=== PATIENT | female | born 1975 | race Two or more races ===

== ENCOUNTER 2021-11-04 15:25 | Emergency (ER) | payer BC, OTHER ==
[~2021-11-04] VITALS: Ht 172.7 cm; Wt 102.1 kg
[2021-11-04 15:27] VITALS: BP 133/78
[2021-11-04] MEDS ORDERED: ALUM & MAG HYDROX-SIMETH LIQ(MAALOX) 30 ML PO ONE (16:30)
[2021-11-04 17:48] LABS: Basophils # (auto) 0.1 10 ^3/uL (0-0.2); Basophils % (auto) 1.1 % (0.0-2.0); Eosinophils # (auto) 0.2 10 ^3/uL (0-0.8); Eosinophils % (auto) 2.8 % (0.0-7.0); Hematocrit 38.8 % (36.0-46.0); Hemoglobin 12.9 g/dL (12.2-16.2); Lymphocytes # (auto) 1.1 10 ^3/uL (0.4-5.4); Lymphocytes % (auto) 17.3 % (10.0-50.0); Mean Corpuscular Hemoglobin 30.7 pg (28.0-32.0); Mean Corpuscular Hgb Conc. 33.3 g/dL (32.0-36.0); Mean Corpuscular Volume 92.2 fL (80.0-100.0); Monocytes # (auto) 0.6 10 ^3/uL (0-1.3); Monocytes % (auto) 9.7 % (0.0-12.0); Neutrophils # (auto) 4.4 10 ^3/uL (1.6-8.6); Neutrophils % (auto) 69.1 % (37.0-80.0); Nucleated Red Blood Cells % 0.1 %; Red Blood Cells 4.21 10^6/uL (4.0-5.20); Red Cell Distribution Width 15.7 % (11.8-14.3); White Blood Cell 6.4 10^3/uL (4.4-10.8)
[2021-11-04 17:55] LABS: Albumin 3.7 g/dL (3.4-5.0); Calcium 8.3 mg/dL (8.5-10.1); Magnesium 3.2 mg/dL (1.6-2.6)
[2021-11-04 18:01] LABS: BUN/Creatinine Ratio 16.7; Bilirubin, Total 0.2 mg/dL (0.2-1.0); Total Protein 7.9 g/dL (6.4-8.2)
[2021-11-04 18:07] LABS: Beta HCG, Quantitative < 1 mlU/mL (1-3); Thyroid Stimulating Hormone 2.01 uIU/mL (0.358-3.74)
[2021-11-04] MEDS ORDERED: DexAMETHasone 4 MG TAB PO ONE (18:30)
== END 2021-11-04 18:54 | disposition left against medical advice (07) ==
LOC: ER 15:26
DX: R07.89 Other chest pain (principal)
CPT/HCPCS: 36415; 80053; 83690; 83735; 83880; 84443; 84484; 84702; 85025; 85379; 93005

== ENCOUNTER 2021-11-07 08:04 | Emergency (ER) | payer BC ==
[~2021-11-07] VITALS: Ht 172.7 cm; Wt 102.1 kg
[2021-11-07] MEDS ORDERED: AMOX-277 PO (11:57)
[2021-11-07 12:10] VITALS: BP 120/89
== END 2021-11-07 12:16 | disposition home or self-care (01) ==
LOC: ER 08:04
DX: J06.9 Acute upper respiratory infection, unspecified (principal); Z20.822 Contact with and (suspected) exposure to COVID-19
CPT/HCPCS: 36415; 71045; 87426

== ENCOUNTER 2023-02-28 12:13 | Emergency (ER) | payer BC ==
[~2023-02-28] VITALS: Ht 172.7 cm; Wt 85.0 kg
[~2023-02-28 12:13] MED LIST: AMOX-277 PO
[2023-02-28] MEDS ORDERED: AUG875T PO (13:55)
[2023-02-28] MEDS ORDERED: LIDO2SOL18 MT (13:55)
[2023-02-28 13:59] VITALS: BP 111/69
[2023-02-28] MEDS ORDERED: LIDOCAINE VISCOUS 2% 15ML UD MT ONE (14:00)
== END 2023-02-28 14:28 | disposition home or self-care (01) ==
LOC: ER 12:13
DX: J02.0 Streptococcal pharyngitis (principal); H92.03 Otalgia, bilateral; F41.9 Anxiety disorder, unspecified; G35 Multiple sclerosis
CPT/HCPCS: 87070; 87880

== ENCOUNTER 2023-06-10 10:40 | Emergency (ER) | payer BC ==
[~2023-06-10] VITALS: Ht 172.7 cm; Wt 91.4 kg
[~2023-06-10 10:40] MED LIST changes: -AMOX-277 PO; +AMOX875T4 PO; +AUG875T PO; +LIDO2SOL18 MT
[2023-06-10] MEDS ORDERED: PENI500T2 PO (13:27)
[2023-06-10] MEDS ORDERED: IPRATROPIUM BROM 0.5 MG/2.5ML INH SOL NEB ONE (13:30)
[2023-06-10] MEDS ORDERED: DexAMETHasone SOD PHOS 10MG/1ML VIAL INJ IM ONE (13:30)
[2023-06-10] MEDS ORDERED: ALBUTEROL SULF 2.5 MG/0.5ML(0.5%) NEB SOLN NEB ONE (13:30)
[2023-06-10 14:06] VITALS: BP 128/88; PULSE 86; RESP 16; TEMP 97.8; O2SAT 98
== END 2023-06-10 14:24 | disposition home or self-care (01) ==
LOC: ER 10:40
DX: J02.9 Acute pharyngitis, unspecified (principal); F41.9 Anxiety disorder, unspecified; Z79.899 Other long term (current) drug therapy
CPT/HCPCS: 94640; 96372; 99283; J1100; J7644

== ENCOUNTER 2025-01-02 11:20 | Emergency (ER) | payer BC, MEDICAID ==
[~2025-01-02] VITALS: Ht 154.9 cm; Wt 74.8 kg
[~2025-01-02 11:20] MED LIST changes: +PENI500T2 PO
--- NOTE | 2025-01-02 11:38 | ED.PDOC ---
General HPI Comments 49-year-old female presents with a chief complaint of dysuria, back pain, and flank pain. Patient states that her pain is localized to her right flank, nonradiating, and also the middle of her back, nonradiating. Patient mentions that she believes that she has a UTI and would like antibiotics. Patient denies any hematuria, burning with urination, or vaginal discharge. Patient is ambulatory with steady gait. PMHx: Anxiety, Arthritis, MS PSHx: Appendectomy, Tummy Tuck, Breast Augmentation HPI: Poor Historian. REVIEW OF SYSTEMS: CONSTITUTIONAL: Denies acute: fever, diaphoresis, chills, generalized weakness. HEAD: Denies acute: headache, photophobia Eyes: Denies acute: Double vision, vision loss, eye pain, eye discharge. EARS: Denies acute: tinnitus, hearing loss, ear discharge, ear pain, THROAT: Denies acute: sore throat, swelling, difficulty swallowing , pain with swallowing, change in voice. NECK: Denies acute: neck pain, neck swelling, stiff neck. HEART: Denies acute : chest pain, palpitations, LUNGS: Denies acute: SOB, wheezing, cough, hemoptysis ABDOMEN: Denies acute: abdominal pain, Nausea, Vomiting, diarrhea, melena , hematemesis, hematochezia SKIN: Denies acute: rash, redness, lesions, itchiness. EXTREMITIES: Denies acute: calf pain, numbness, tingling, weakness, denies pain in extremity. Denies acute: Low back pain. Neuro: Denies acute: focal neurological deficit, motor or sensory focal neurological deficit, tremors, seizure like activity, confusion, dizziness, change in mental status, loss of bowel or bladder function, cauda equina like symptoms. : Denies acute: , hematuria, increase in urinary frequency. PSYCH: Denies acute: hallucination, suicidal ideation, homicidal ideation. FEMALE: Denies acute: abnormal vaginal bleeding, foul odor, unusual discharge. PHYSICAL EXAM: General: no acute distress, awake and alert. Head: normocephalic, atraumatic. Neck: supple, trachea is midline, no swelling. Throat: Normal phonation. Eyes:, no erythema, no purulent discharge, no proptosis, no icterus. Heart: regular rate, regular rhythm, no significant murmur appreciated. Lungs: no apparent respiratory distress, Able to speak in full sentences. No wheezing, no rhonchi, no crackles. No stridors Clear to auscultation bilaterally. Abdomen: non tender to palpation, non distended, soft, no guarding, no rebound, + bowel sounds. Neuro: Awake, Alert, oriented to name, self, situation, follows commands GCS=15. Speech is normal. Skin: no petechia, no purpura, no cyanosis, non-pale, not jaundice. Lower extremities: --no - Pitting edema no deformity, no focal swelling, no calf TTP. Makes eye contact. moves all four extremities. Face: no apparent facial droop. Minimal left CVA tenderness to percussion . Ambulating in the ED independently. ED COURSE: Chief Complaint: Urinary Time Seen by MD: 11:31 Primary Care Provider: ADITYA Medina notes: Nurses Notes, Medications, Allergies Allergies: Coded Allergies: NO KNOWN ALLERGIES (Unverified , 11/04/21) Home Meds Active Scripts Cephalexin Monohydrate (Cephalexin) 500 Mg Tab, 1 TAB PO QID for 7 Days, #28 TAB Prov:CHEPE ESCOBAR DO 01/02/25 Penicillin V Potassium (Veetids) 500 Mg Tab, 1 TAB PO BID for 10 Days, #20 TAB 0 Refills Prov:MARILYN DAVIS ROLLER MAKER 06/10/23 Lidocaine Hcl (Lidocaine Viscous) 2 % Shirin, 15 ML MT Q4HPRN PRN for 3 Days, #300 ML Prov:LESLIE GOEL ROLLER MAKER 02/28/23 Amoxicillin & Pot Clavulanate (AUGMENTIN TABLET) 875 Mg Tb, 875 MG PO BID for 10 Days, #20 TAB Prov:LESLIE GOEL ROLLER MAKER 02/28/23 Amoxicillin & Pot Clavulanate (Amoxicillin/Potassium Cla) 875 Mg Tab, 1 TAB PO BID for 10 Days, #20 TAB 0 Refills Prov:TREVIN VEGA 11/07/21 Information Source: Patient Mode of Arrival: Ambulatory Past Medical History PAST MEDICAL HISTORY: Anxiety, Arthritis Past Medical History (Other): MS Surgical History: Appendectomy Surgical History (Other): Breast Augmentation, Tummy Tuck ENGINEERING TEST MECHANIC History: No Pertinent ENGINEERING TEST MECHANIC History Family History Family History: Reviewed,noncontributory to illness, Unknown Social History Smoker: Non-Smoker Alcohol: Denies ETOH Use Drugs: Denies Drug Use Lives In: Home Was a procedure done? Was a procedure done?: No Differential Diagnosis Kidney stone (Female): Other (Flank Pain;DDX include Nephrolethiasis, obstructive uropathy, kidney cancer, renal infarct, intraabdominal neoplasm, lower lobe pneumonia, retroperitoneal hemorrhage, pancreatitis, aneurysm, dissection, musculoskeletal, rib contusion/trauma, hematoma, PYLONEPHRITIS, muscle strain, spinal disease. IN A FEMALE) Urinary Problem (Female): Pyelonephritis, UTI, Other X-Ray, Labs, Meds, VS Vital Signs Date Time Temp Pulse Resp B/P (MAP) Pulse Ox O2 Delivery O2 Flow Rate FiO2 01/02/25 16:11 97.9 90 16 113/84 (94) 98 97.9 01/02/25 12:38 97.9 87 19 106/83 (91) 95 97.9 01/02/25 12:38 87 19 95 Room Air 01/02/25 11:34 98.7 99 19 119/83 (95) 98 98.7 Lab Test 01/02/25 12:10 01/02/25 11:30 Range/Units Urine Color Light-yellow Yellow Urine Clarity Clear Clear Urine pH 6.5 5.0-9.0 Urine Specific [place] 1.009 1.001-1.035 Urine Protein Negative Negative Urine Ketones Negative Negative Urine Blood Negative Negative /uL Urine Nitrite Negative Negative Urine Bilirubin Negative Negative Urine Urobilinogen Normal Negative mg/dL Urine Leukocyte Esterase Negative Negative /uL Urine RBC <1 0 - 4 /hpf Urine Microscopic WBC 0-5 /HPF Urine Squamous Epithelial Cells Few <5 /hpf Urine Bacteria None seen None Seen /hpf Urine Glucose Normal Normal mg/dL Urine Test Negative Negative White Blood Count 8.1 4.4-10.8 10^3/uL Red Blood Count 4.29 4.0-5.20 10^6/uL Hemoglobin 12.7 12.2-16.2 g/dL Hematocrit 38.5 36.0-46.0 % Mean Corpuscular Volume 89.6 80.0-100.0 fL Mean Corpuscular Hemoglobin 29.6 28.0-32.0 pg Mean Corpuscular Hemoglobin Concent 33.0 32.0-36.0 g/dL Red Cell Distribution Width 17.3 H 11.8-14.3 % Platelet Count 360 140-450 10^3/uL Mean Platelet Volume 8.0 6.9-10.8 fL Neutrophils (%) (Auto) 56.7 37.0-80.0 % Lymphocytes (%) (Auto) 31.4 10.0-50.0 % Monocytes (%) (Auto) 7.5 0.0-12.0 % Eosinophils (%) (Auto) 3.1 0.0-7.0 % Basophils (%) (Auto) 1.3 0.0-2.0 % Neutrophils # (Auto) 4.6 1.6-8.6 10 ^3/uL Lymphocytes # (Auto) 2.5 0.4-5.4 10 ^3/uL Monocytes # (Auto) 0.6 0-1.3 10 ^3/uL Eosinophils # (Auto) 0.3 0-0.8 10 ^3/uL Basophils # (Auto) 0.1 0-0.2 10 ^3/uL Nucleated Red Blood Cells 0.1 % Sodium Level 139 136-145 mmol/L Potassium Level 4.1 3.5-5.1 mmol/L Chloride Level 106 98-107 mmol/L Carbon Dioxide Level 29 20-31 mmol/L Anion Gap 4 L 5-15 Blood Urea Nitrogen 11 9-23 mg/dL Creatinine 0.67 0.550-1.02 mg/dL Glomerular Filtration Rate Calc 108 >90 mL/min BUN/Creatinine Ratio 16.4 10.0-20.0 Serum Glucose 86 74-106 mg/dL Lactic Acid Level 0.8 0.4-2.0 mmol/L Calcium Level 9.4 8.7-10.4 mg/dL Total Bilirubin 0.3 0.2-1.0 mg/dL Aspartate Amino Transferase (AST) 20 13-40 U/L Alanine Aminotransferase (ALT) 25 7-40 U/L Alkaline Phosphatase 76 46-116 U/L Total Protein 7.1 5.7-8.2 g/dL Albumin 4.4 3.2-4.8 g/dL PATIENT: JAN SAM MACCT: [id number]: [id number] : 1975 LOC: ER ROOM / BED: / AGE / SEX: 49 / F ADM STATUS: REG ER SERVICE 1341 ORDERING PHYSICIAN: CHEPE ESCOBAR DO PROCEDURE(s): ABPLIV - CT AB PEL WITH IV CON ONLY REASON: urinary symptoms, R flank pain ORDER NUMBER(s): [id number], ACCESSION NUMBER(s): [id number] Procedure: CT CT AB PEL WITH IV CON ONLY 01/02/2025 03:06 PM Indication: urinary symptoms, R flank pain Comparison Study: None Technique: Axial images were obtained and reformatted in coronal and sagittal planes. All CT scans at this medical facility are performed using dose modulation techniques as appropriate to a performed exam including the following: Automated exposure control was utilized; adjustment of the MA and/or KV according to patient size; and use of iterative reconstruction technique. CT Dose: CTDI volume is 21.96 mGy. Dose-length product is 1176.07 mGy*cm FINDINGS: Lower Chest: Unremarkable. Hepatobiliary: Unremarkable. Spleen: Unremarkable. Pancreas: Unremarkable. Adrenal Glands: Unremarkable. tract: The kidneys are normal in size bilaterally . Mild fullness of the bilateral renal pelvises. No urinary calculi. No hydronephrosis. The urinary bladder is unremarkable. GI tract: The stomach is grossly normal in appearance. No evidence of small bowel obstruction. The large bowel is unremarkable. The appendix is not visualized. No inflammatory change is noted in the right lower quadrant. Lymphatics: No mesenteric, retroperitoneal or periportal lymphadenopathy. Vasculature: The abdominal aorta is normal in in caliber. Pelvic Organs: Unremarkable Bones/soft tissues: No acute abnormality. Other: None. IMPRESSION: 1. Mild bilateral hydronephrosis. No urinary calculi or hydroureter. The urinary bladder is unremarkable. The appendix is not identified. No inflammatory changes noted in the right lower quadrant. ATED BY: LEIGH MELISSA MD DICTATED DATE/TIME: 01/02/251545 SIGNED BY: LEIGH MELISSA MD SIGNED DATE/TIME: 01/02/251545 Time of 1ST Reevaluation: 12:01 Reevaluation 1ST: Unchanged Patient Education/Counseling: Diagnosis, Treatment Family Education/Counseling: No Family Present Comments Patient presented with the above HPI.---urinary symptoms and flank pain---workup was initiated. patient was found with the above mentioned diagnosis. the following medications were ordered: please refer to order lists of meds and tests obtained by myself Dr. Escobar. Patient ED course and VS have been stabilized. Patient has been reassessed in the ED and remained in a stable condition. Pertinent incidental findings were discussed with the patient and/or family. Patient/family voices understanding and is agreeable with plan. Patient has been observed in the ED adequate length of time to insure improvement/stability. Escalation of care considered: Consideration of escalation to observation or admission Although patient's workup was essentially unremarkable, I prescribed her antibiotics to treat possible subclinical UTI Patient was DISCHARGED home in a stable condition. All the reports of any imaging studies that were ordered by myself were reviewed by myself. Departure 1 Departure Time of Disposition: 15:58 Impression: Primary Impression: Bilateral hydronephrosis Additional Impression: Dysuria Disposition: 01 HOME / SELF CARE / HOMELESS Condition: Stable Additional Instructions: Additional discharge instructions: You MUST follow-up with your primary care/family doctor in 1 to 2 days. If you are unable to see your primary care/family doctor, please return to our emergency room for re-assessment and re-evaluation in 1 to 2 days. Return to the emergency room here in our facility or to the nearest ER [facility] if your symptoms change or worsen. CONSULTATIONS: you MUST Follow-up for consultation as soon as possible with: urology in 1-2 days. Please call for appointment. You MUST call the consultants office yourself to make an appointment. You may need to arrange that through your insurance and/or your primary/family doctor. If you are unable to see the wound care center consultant in 1 to 2 days, you must return to our emergency room (or any other ER of your choice) for re-assessment and re- evaluation. Adequate fluid hydration. Below is a copy of your radiological report for follow up: [facility] [id number] [place] [address] Ph: [phone] DIAGNOSTIC IMAGING Diagnostic Imaging Report : [id number] Signed PATIENT: JAN SAM ACCT: [id number] UNIT: [id number] : 1975 LOC: ER ROOM / BED: / AGE / SEX: 49 / F ADM STATUS: REG ER SERVICE 1341 ORDERING PHYSICIAN: CHEPE ESCOBAR DO PROCEDURE(s): ABPLIV - CT AB PEL WITH IV CON ONLY REASON: urinary symptoms, R flank pain ORDER NUMBER(s): [id number], ACCESSION NUMBER(s): [id number] Procedure: CT CT AB PEL WITH IV CON ONLY 01/02/2025 03:06 PM Indication: urinary symptoms, R flank pain Comparison Study: None Technique: Axial images were obtained and reformatted in coronal and sagittal planes. All CT scans at this medical facility are performed using dose modulation techniques as appropriate to a performed exam including the following: Automated exposure control was utilized; adjustment of the MA and/or KV according to patient size; and use of iterative reconstruction technique. CT Dose: CTDI volume is 21.96 mGy. Dose-length product is 1176.07 mGy*cm FINDINGS: Lower Chest: Unremarkable. Hepatobiliary: Unremarkable. Spleen: Unremarkable. Pancreas: Unremarkable. Adrenal Glands: Unremarkable. tract: The kidneys are normal in size bilaterally . Mild fullness of the bilateral renal pelvises. No urinary calculi. No hydronephrosis. The urinary bladder is unremarkable. GI tract: The stomach is grossly normal in appearance. No evidence of small bowel obstruction. The large bowel is unremarkable. The appendix is not visualized. No inflammatory change is noted in the right lower quadrant. Lymphatics: No mesenteric, retroperitoneal or periportal lymphadenopathy. Vasculature: The abdominal aorta is normal in in caliber. Pelvic Organs: Unremarkable Bones/soft tissues: No acute abnormality. Other: None. IMPRESSION: 1. Mild bilateral hydronephrosis. No urinary calculi or hydroureter. The urinary bladder is unremarkable. The appendix is not identified. No inflammatory changes noted in the right lower quadrant. ATED BY: LEIGH MELISSA MD DICTATED DATE/TIME: 01/02/25 154 SIGNED BY: LEGIH MELISSA MD SIGNED DATE/TIME: 01/02/25 154 CC: e-Prescriptions Cephalexin Monohydrate (Cephalexin) 500 Mg Tab 1 TAB PO QID for 7 Days, #28 TAB Prov: CHEPE ESCOBAR DO 01/02/25 Discharged With: Self Critical Care Note Critical Care Time?: No I personally scribed for CHEPE ESCOBAR DO ([email or web address]) on 01/02/25 at 11:38. Electronically submitted by Juan Almeida ([email or web address]). I personally scribed for CHEPE ESCOBAR DO ([email or web address]) on 01/02/25 at 15:58. Electronically submitted by Juan Almeida ([email or web address]). CHEPE ESCOBAR DO Jan 02, 2025 11:38
[2025-01-02 11:58] LABS: Basophils # (auto) 0.1 10 ^3/uL (0-0.2); Basophils % (auto) 1.3 % (0.0-2.0); Eosinophils # (auto) 0.3 10 ^3/uL (0-0.8); Eosinophils % (auto) 3.1 % (0.0-7.0); Hematocrit 38.5 % (36.0-46.0); Hemoglobin 12.7 g/dL (12.2-16.2); Lymphocytes # (auto) 2.5 10 ^3/uL (0.4-5.4); Lymphocytes % (auto) 31.4 % (10.0-50.0); Mean Corpuscular Hemoglobin 29.6 pg (28.0-32.0); Mean Corpuscular Volume 89.6 fL (80.0-100.0); Monocytes # (auto) 0.6 10 ^3/uL (0-1.3); Monocytes % (auto) 7.5 % (0.0-12.0); Neutrophils # (auto) 4.6 10 ^3/uL (1.6-8.6); Neutrophils % (auto) 56.7 % (37.0-80.0); Nucleated Red Blood Cells % 0.1 %; Platelet Count (auto) 360 10^3/uL (140-450); Red Blood Cells 4.29 10^6/uL (4.0-5.20); Red Cell Distribution Width 17.3 % (11.8-14.3); White Blood Cell 8.1 10^3/uL (4.4-10.8)
[2025-01-02 12:10] LABS: Urine Bacteria None Seen /hpf (None Seen)
[2025-01-02 12:16] LABS: Alanine Aminotransferase 25 U/L (7-40); Albumin 4.4 g/dL (3.2-4.8); Alkaline Phosphatase 76 U/L (46-116); Anion Gap 4 (5-15); Aspartate Aminotransferase 20 U/L (13-40); BUN/Creatinine Ratio 16.4 (10.0-20.0); Bilirubin, Total 0.3 mg/dL (0.2-1.0); Blood Urea Nitrogen 11 mg/dL (9-23); Calcium 9.4 mg/dL (8.7-10.4); Carbon Dioxide 29 mmol/L (20-31); Chloride 106 mmol/L (98-107); Glucose 86 mg/dL (74-106); Potassium 4.1 mmol/L (3.5-5.1); Sodium 139 mmol/L (136-145); Total Protein 7.1 g/dL (5.7-8.2)
[2025-01-02 12:37] LABS: Urine Blood Negative /uL (Negative); Urine Clarity Clear (Clear); Urine Color Light-Yellow (Yellow); Urine Protein, UAD Negative (Negative); Urine Specific Gravity 1.009 (1.001-1.035); Urine Squamous Epithelial Cell FEW /hpf (<5); Urine Urobilinogen Normal (Negative); Urine pH 6.5 (5.0-9.0)
[2025-01-02] MEDS: IOHEXOL 300 MG/ML 100ML BOTTLE IJ ONE (15:20)
--- NOTE | 2025-01-02 15:49 | DVH ---
Procedure: CT CT AB PEL WITH IV CON ONLY 01/02/2025 03:06 PM Indication: urinary symptoms, R flank pain Comparison Study: None Technique: Axial images were obtained and reformatted in coronal and sagittal planes. All CT scans at this medical facility are performed using dose modulation techniques as appropriate to a performed e xam including the following: Automated exposure control was utilized; adjustment of the MA and/or KV according to patient size; and use of iterative reconstruction technique. CT Dose: CTDI volume is 21. 96 mGy. Dose-length product is 1176.07 mGy*cm FINDINGS: Lower Chest: Unremarkable. Hepatobiliary: Unremarkable. Spleen: Unremarkable. Pancreas: Unremarkable. Adrenal Glands: Unremarkable. tract: The kidneys are normal in size bilaterally . Mild fullness of the bilateral renal pelvises . No urinary calculi. No hydronephrosis. The urinary bladder is unremarkable. GI tract: The stomach is grossly normal in appearance. No evidence of small bowel obstruction. The la rge bowel is unremarkable. The appendix is not visualized. No inflammatory change is noted in the rig ht lower quadrant. Lymphatics: No mesenteric, retroperitoneal or periportal lymphadenopathy. Vasculature: The abdominal aorta is normal in in caliber. Pelvic Organs: Unremarkable Bones/soft tissues: No acute abnormality. Other: None. IMPRESSION: 1. Mild bilateral hydronephrosis. No urinary calculi or hydroureter. The urinary bladder is unremark able. The appendix is not identified. No inflammatory changes noted in the right lower quadrant.
[2025-01-02] MEDS ORDERED: CEPH500T PO (16:00)
[2025-01-02 16:11] VITALS: BP 113/84; PULSE 90; RESP 16; TEMP 97.9; O2SAT 98
== END 2025-01-02 16:15 | disposition home or self-care (01) ==
LOC: ER 11:20
DX: N13.30 Unspecified hydronephrosis (principal); R30.0 Dysuria; F41.9 Anxiety disorder, unspecified; M19.90 Unspecified osteoarthritis, unspecified site; Z90.49 Acquired absence of other specified parts of digestive tract; Z98.890 Other specified postprocedural states; Z79.899 Other long term (current) drug therapy
CPT/HCPCS: 36415; 74177; 80053; 81001; 81025; 83605; 85025; 99285; Q9967

== ENCOUNTER 2025-04-28 12:34 | Emergency (ER) | payer MEDICAID ==
[~2025-04-28] VITALS: Ht 172.7 cm; Wt 88.2 kg
[~2025-04-28 12:34] MED LIST changes: +CEPH500T PO
[2025-04-28 12:51] VITALS: BP 131/81; PULSE 105; RESP 20; TEMP 97.8; O2SAT 97
--- NOTE | 2025-04-28 14:05 | ED.PDOC ---
Musculoskeletal HPI Comments 49-YEAR-OLD FEMALE WITH A PAST PRESENTS FOR A MECHANICAL FALL. Patient reports she fell 1 hour ago at her house Reports she lost balance walking in her house in the front yd landing on her side Denies any LOC denies hitting her head. Concerned about a laceration to the right elbow. Pain rated moderate. No medications tried. Symptoms associated with a tingling to the 4th and 5th phalanx. Denies any changes to her medicine. Last Tdap: > 5 years ago R hand dominant Chief Complaint: Upper Extremity Time Seen by MD: 13:06 Primary Care Provider: ADITYA Reviewed Notes: Nurses Notes, Medications, Allergies Allergies: Coded Allergies: NO KNOWN ALLERGIES (Unverified , 11/04/21) Home Meds Active Scripts Penicillin V Potassium (Veetids) 500 Mg Tab, 1 TAB PO BID for 10 Days, #20 TAB 0 Refills Prov:MARILYN DAVIS INSURANCE ACCOUNT SPECIALIST 06/10/23 Reported Medications Cetirizine Hcl (Kls Aller-Ashley) 10 Mg Tab, 1 TAB PO DAILY, #30 TAB 3 Refills 05/01/25 Clindamycin Hcl (CLEOCIN) 150 Mg Cap, 1 CAP PO QID, #40 CAP 05/01/25 Glatiramer Acetate (Copaxone) 40 Mg/Ml Inj, 40 MG SC 2XW, INJ 05/01/25 Information Source: Patient Mode of Arrival: Ambulatory Past Medical History PAST MEDICAL HISTORY: Anxiety, Arthritis Surgical History: Appendectomy HIGH DENSITY FINISHING OPERATOR History: No Pertinent HIGH DENSITY FINISHING OPERATOR History Family History Family History: Reviewed,noncontributory to illness, Unknown Social History Smoker: Non-Smoker Alcohol: Denies ETOH Use Drugs: Denies Drug Use Lives In: Home Physical Exam General Appearance: No Apparent Distress, Normal HEENT: Head (Normocephalic atraumatic.), Normal ENT Inspection, Pharynx Normal, TMs Normal Neck: Full Range of Motion, Non-Tender, Normal, Normal Inspection Respiratory: Chest Non-Tender, Lungs Clear, No Accessory Muscle Use, No Respiratory Distress, Normal Breath Sounds Cardiovascular: No Murmur, No Gallop, Regular Rate/Rhythm Breast Exam: Deferred Gastrointestinal: No Organomegaly, Non Tender, No Pulsatile Mass, Normal Bowel Sounds, Soft Genitalia: Deferred Pelvic: Deferred Rectal: Deferred Extremities: No calf tenderness, Normal capillary refill, Normal inspection, Normal range of motion, Non-tender, No pedal edema Musculoskeletal : Location: Right Extremity Location: Elbow (1 cm linear abrasion to the medial epicondyle. No foreign body. No surrounding erythema. No active bleeding. Pain with flexion-extension of the epicondyle. Radial pulses 2+ neurovascular sensation intact) Apperance: Normal Neurologic: Alert, customs agent II-XII nml as Tested, No Motor Deficits, Normal Affect, Normal Mood, No Sensory Deficits Cerebellar Function: Normal Reflexes: Normal Skin: Dry, Normal Color, Warm Lymphatic: No Adenopathy Was a procedure done? Was a procedure done?: Yes Sedation Sedation?: No Laceration Repair : Location 1cm Length 1 Anesthetic: Lidocaine Laceration Repair Prep: Saline Laceration Repair Wound Comple: epidermis/dermis repair Laceration Repair: Number of sutures (1) Informed consent obtained: Yes Risks, benefits, and alternati: Yes Differential Diagnosis EXT Differential Diagnosis: Fracture, Sprain, Dislocation X-Ray, Labs, Meds, VS Vital Signs Date Time Temp Pulse Resp B/P (MAP) Pulse Ox O2 Delivery O2 Flow Rate FiO2 04/28/25 12:51 97.8 105 20 131/81 (98) 97 97.8 [place] [address] Ph: [phone] DIAGNOSTIC IMAGING Diagnostic Imaging Report : [id number] Signed PATIENT: JAN SAM ACCT: [id number] UNIT: [id number] : 1975 LOC: ER ROOM / BED: / AGE / SEX: 49 / F ADM STATUS: REG ER SERVICE 1428 ORDERING PHYSICIAN: MARILYN DAVIS NP PROCEDURE(s): RELB3 - R ELBOW 3 VIEW XRAY REASON: r/o fracture ORDER NUMBER(s): [id number], ACCESSION NUMBER(s): [id number] CLINICAL INDICATION: r/o fracture TECHNIQUE: 3 radiographic views of the right elbow were obtained. Comparison: None FINDINGS/IMPRESSION: Bony structures are intact no fractures no dislocations. No radiographic findings to suggest joint effusion ATED BY: TRINA HUI Jr. DO DICTATED DATE/TIME: 04/28/25 1504 SIGNED BY: TRINA HUI Jr., DO SIGNED DATE/TIME: 04/28/25 2493 CC: X-Ray, Labs, Meds, VS Comment 49-YEAR-OLD FEMALE WITH A PAST PRESENTS FOR A MECHANICAL FALL. Patient arrives alert and oriented, ABC's intact, afebrile, vital signs stable, saturating well in room air Diagnostic imaging ordered by me and results interpreted by radiology : RIGHT ELBOW XY The skin edges of the laceration were infiltrated with 1% lidocaine The skin surrounding the laceration was scrubbed with Betadine soaked sterile gauze The laceration was irrigated under high-pressure with a 60 mL syringe A total of 1L sterile water was used. The laceration was prepped in sterile fashion with sterile drapes On examination under direct light, there was no foreign body seen The laceration was repaired in simple interrupted technique There was no continuing bleeding on repair. There were no complications related to repair Education and follow-up instructions provided Wound check in 2 days Return sooner for signs of infection such as fevers, increased pain, redness, green, yellow discharge, or any concerns Keep wound dry for 24 to 48 hours; dry dressing may be changed Protect from sunlight and keep area clean and dry. Use soap and water if it gets dirty High risk of possible scarring and education provided on ways to minimize scarring after wound heals Also provided education on possible complications post procedure including wound dehiscence, infection, etc. Patient was given: Lidocaine x2, Neomycin tolerated medications with no adverse reaction. Additional MDM Review of External, Non-ED records: External records reviewed. Discussion with independent historian (EMS, family) history obtained from the patient/parents (if applicable) at bedside Chronic conditions affecting care: None Social determinants of health affecting care: None Consideration of admission (observation or admission): I considered escalation of care to admission for this patient, however given the reassuring workup, the patient is safe for outpatient management. Time of 1ST Reevaluation: 13:57 Reevaluation 1ST: Improved Patient Education/Counseling: Diagnosis, Treatment Family Education/Counseling: Diagnosis, Treatment Departure 1 Departure Time of Disposition: 15:16 Impression: Primary Impression: Elbow laceration Qualified Codes: S51.011A - Laceration without foreign body of right elbow, initial encounter Disposition: HOME / SELF CARE / HOMELESS Condition: Stable Discharged With: Self Critical Care Note Critical Care Time?: No Stability Stability form required: No Heart Score Heart Score: Heart Score Response (Comments) Value History N/A 0 EKG N/A 0 Age N/A 0 Risk Factors N/A 0 Troponin N/A 0 Total 0 I personally scribed for MARILYN DAVIS NP ([email or web address]) on 04/28/25 at 14:15. Electronically submitted by Alka Mcclellan ([employer]). I personally scribed for AMRILYN DAVIS INSURANCE ACCOUNT SPECIALIST ([email or web address]) on 04/28/25 at 14:30. Electronically submitted by Alka Mcclellan ([employer]). I personally scribed for MARILYN DAVIS INSURANCE ACCOUNT SPECIALIST ([email or web address]) on 04/28/25 at 14:30. Electronically submitted by Alka Mcclellan ([employer]). I personally scribed for MARILYN DAVIS INSURANCE ACCOUNT SPECIALIST ([email or web address]) on 04/28/25 at 15:21. Electronically submitted by Alka Mcclellan ([employer]). MARILYN DAVIS NP Apr 28, 2025 14:05
[2025-04-28] MEDS: LIDOCAINE W/ EPINEPHRINE 2% INJ 20ML VIAL ONE (14:11)
[2025-04-28] MEDS: LIDOCAINE W/ EPINEPHRINE 1% 20ML VIAL ID ONE (14:17)
--- NOTE | 2025-04-28 15:07 | DVH ---
CLINICAL INDICATION: r/o fracture TECHNIQUE: 3 radiographic views of the right elbow were obtained. Comparison: None FINDINGS/IMPRESSION: Bony structures are intact no fractures no dislocations. No radiographic findings to suggest joint effusion
[2025-04-28] MEDS: NEOMYCIN-BACITRACIN-POLYM UNITDOSE PKG TOP OINT TOP ONE (15:52)
== END 2025-04-28 15:52 | disposition home or self-care (01) ==
LOC: ER 12:34
DX: S51.011A Laceration without foreign body of right elbow, initial encounter (principal); M19.90 Unspecified osteoarthritis, unspecified site; F41.9 Anxiety disorder, unspecified; Z90.49 Acquired absence of other specified parts of digestive tract; Z79.899 Other long term (current) drug therapy; W18.39XA Other fall on same level, initial encounter; Y93.89 Activity, other specified; Y92.89 Other specified places as the place of occurrence of the external cause; Y99.8 Other external cause status
CPT/HCPCS: 12001; 73080

== ENCOUNTER 2025-04-30 10:45 | Inpatient (IN) | payer MEDICAID ==
[~2025-04-30] VITALS: Ht 172.7 cm; Wt 101.3 kg
[2025-04-30 11:43] LABS: Urine Protein, UAD Negative (Negative)
[2025-04-30] MEDS: KETOROLAC TROMETH 30 MG/ML 1ML VIAL IV ONE (11:48)
[2025-04-30] MEDS: cefTRIAXone 1GM/50ML D5W 50 ML IV ONE (11:48)
[2025-04-30] MEDS: CLINDAMYCIN 900MG IV 50 ML IV ONE (11:48)
[2025-04-30 11:49] VITALS: PULSE 74; RESP 12; O2SAT 95
[2025-04-30 12:06] LABS: Hematocrit 40.1 % (36.0-46.0); Hemoglobin 13.2 g/dL (12.2-16.2); Mean Corpuscular Hemoglobin 29.2 pg (28.0-32.0); Mean Corpuscular Volume 88.6 fL (80.0-100.0); Nucleated Red Blood Cells % 0.1 %
[2025-04-30 12:13] LABS: Anion Gap 7 (5-15); Carbon Dioxide 27 mmol/L (20-31); Potassium 3.8 mmol/L (3.5-5.1); Sodium 142 mmol/L (136-145)
[2025-04-30 12:15] LABS: Calcium 9.7 mg/dL (8.7-10.4)
--- NOTE | 2025-04-30 12:19 | ED.PDOC ---
Musculoskeletal HPI Comments A 49 YEAR OLD FEMALE PRESENTS TO THE ED WITH COMPLAINT OF LEFT LOW LEG PAIN WITH ASSOCIATED PAIN, REDNESS, AND SWELLING FOR X2 WEEKS. PATIENT REPORTS WORSENING SYMPTOMS OF X 4 DAYS AGO. WALKING AND STANDING INCREASES LEFT LOW LEG PAIN. PATIENT DENIES FEVER, CHILLS, SHORTNESS OF BREATH, CHEST PAIN, ABDOMINAL PAIN, NAUSEA, VOMITING, HEADACHE, OR OTHER COMPLAINTS. NO OTHER SYMPTOMS OR MODIFYING FACTORS AT THIS TIME. PATIENT IS ALERT, ORIENTED X 4, AND HAS STEADY GAIT. Chief Complaint: Cellulitis Time Seen by MD: 11:03 Primary Care Provider: JLUIS Medina Notes: Nurses Notes, Medications, Allergies Allergies: Coded Allergies: NO KNOWN ALLERGIES (Unverified , 11/04/21) Home Meds Active Scripts Cephalexin Monohydrate (Cephalexin) 500 Mg Tab, 1 TAB PO QID for 7 Days, #28 TAB Prov:CHEPE ESCOBAR DO 01/02/25 Penicillin V Potassium (Veetids) 500 Mg Tab, 1 TAB PO BID for 10 Days, #20 TAB 0 Refills Prov:MARILYN DAVIS RESERVOIR ENGINEER 06/10/23 Lidocaine Hcl (Lidocaine Viscous) 2 % Shirin, 15 ML MT Q4HPRN PRN for 3 Days, #300 ML Prov:LESLIE GOEL RESERVOIR ENGINEER 02/28/23 Amoxicillin & Pot Clavulanate (AUGMENTIN TABLET) 875 Mg Tb, 875 MG PO BID for 10 Days, #20 TAB Prov:LESLIE GOEL RESERVOIR ENGINEER 02/28/23 Amoxicillin & Pot Clavulanate (Amoxicillin/Potassium Cla) 875 Mg Tab, 1 TAB PO BID for 10 Days, #20 TAB 0 Refills Prov:TREVIN VEGA 11/07/21 Information Source: Patient Mode of Arrival: Ambulatory Location: Left Extremity Location: Leg Timing: Days (4) Prehospital treatment: None Severity: Moderate Able to Move Extremity: Yes Bear Weight: Limited Pain: Moderate Hand Dominance: Left Circumstances: Spontaneous Onset of Symptoms: Spontaneous Symptoms: Swelling, Pain, Erythema Last Tetanus: UTD Associated signs and symptoms: Leg pain Past Medical History PAST MEDICAL HISTORY: Anxiety, Arthritis Surgical History: Appendectomy SYSTEMS ANALYST DEVELOPER History: No Pertinent SYSTEMS ANALYST DEVELOPER History Family History Family History: Reviewed,noncontributory to illness, Unknown Social History Smoker: Non-Smoker Alcohol: Denies ETOH Use Drugs: Denies Drug Use Lives In: Home Constitutional: denies: chills, diaphoresis, fatigue, fever, malaise, sweats, weakness, others EENTM: denies: blurred vision, double vision, ear bleeding, ear discharge, ear drainage, ear pain, ear ringing, eye pain, eye redness, hearing loss, mouth pain, mouth swelling, nasal discharge, nose bleeding, nose congestion, nose pain, photophobia, tearing, throat pain, throat swelling, voice changes, others Respiratory: denies: cough, hemoptysis, orthopnea, SOB at rest, shortness of breath, SOB with excertion, stridor, wheezing, others Cardiovascular: denies: chest pain, dizzy spells, diaphoresis, Dyspnea on exertion, edema, irregular heart beat, left arm pain, lightheadedness, palpitations, PND, syncope, others Gastrointestinal: denies: abdomen distended, abdominal pain, blood streaked bowels, constipated, diarrhea, dysphagia, difficulty swallowing, hematemesis, melena, nausea, poor appetite, poor fluid intake, rectal bleeding, rectal pain, vomiting, others Genitourinary: denies: abnormal vagina bleeding, burning, dyspareunia, dysuria, flank pain, frequency, hematuria, incontinence, pain, , vagina discharge, urgency, others Neurological: denies: dizziness, fainting, headache, left sided numbness, left sided weakness, numbness, paresthesia, pre-existing deficit, right sided numbness, right sided weakness, seizure, speech problems, tingling, tremors, weakness, others Musculoskeletal: reports: muscle pain, others (LEFT KNEE PAIN, SWELLING); denies: back pain, gout, joint pain, joint swelling, muscle stiffness, neck pain Integumetry: reports: others (REDNESS AND ITCHINESS OF LEFT LOW LEG ); denies: bruises, change in color, change in hair/nails, dryness, laceration, lesions, lumps, rash, wounds Allergic/Immunocompromised: denies: Difficulty Healing, Frequent Infections, Hives, Itching, others Hematologic/Lymphatic: denies: anemia, blood clots, easy bleeding, easy bruising, swollen glands, others Endocrine: denies: excessive hunger, excessive sweating, excessive thirst, excessive urination, flushing, intolerance to cold, intolerance to heat, unexplained weight gain, unexplained weight loss, others Psychiatric: denies: anxiety, bipolar disorder, depression, hopeless, panic disorder, schizophrenia, sleepless, suicidal, others All Other Systems: Reviewed and Negative Physical Exam General Appearance: No Apparent Distress, Normal HEENT: Normal ENT Inspection, PERRL/EOMI, Pharynx Normal, TMs Normal Neck: Full Range of Motion, Non-Tender, Normal, Normal Inspection Respiratory: Chest Non-Tender, Lungs Clear, No Accessory Muscle Use, No Respiratory Distress, Normal Breath Sounds Cardiovascular: No Edema, No JVD, No Murmur, No Gallop, Normal Peripheral Pulses, Regular Rate/Rhythm Breast Exam: Deferred Gastrointestinal: No Organomegaly, Non Tender, No Pulsatile Mass, Normal Bowel Sounds, Soft Genitalia: Deferred Pelvic: Deferred Rectal: Deferred Extremities: Decreased range of motion, No calf tenderness, Normal capillary refill, No pedal edema, Swelling (ERYTHEMA AND SWELLING ON RIGHT LOW LEG WITH MILD DRAINAGE, NO DVT SIGNS. ), Tender (AND REDNESS ON RIGHT LOW LEG, +CELLULITIS, NO DVT SIGNS. ) Musculoskeletal : Apperance: Normal Neurologic: Alert, captain's assistant II-XII nml as Tested, No Motor Deficits, Normal Affect, Normal Mood, No Sensory Deficits Cerebellar Function: Normal Reflexes: Normal Skin: Dry, Warm, Wounds (LOCALIZED ERYTHEMA AND MILD SWELLING ON RIGHT LOW LEG, NO PUS DRAINAGE, +CELLULITIS. ) Peripheral Pulses: 2+ carotid (R), 2+ carotid (L), 2+ dorsalis pedis (R), 2+ dorsalis pedis (L) Lymphatic: No Adenopathy Was a procedure done? Was a procedure done?: No Differential Diagnosis EXT Differential Diagnosis: Cellulitis, Fracture, Contusion, Strain X-Ray, Labs, Meds, VS Vital Signs Date Time Temp Pulse Resp B/P (MAP) Pulse Ox O2 Delivery O2 Flow Rate FiO2 04/30/25 13:15 98.4 98 18 114/78 (90) 98 98.4 04/30/25 11:49 74 12 95 Room Air* 0 21 04/30/25 11:05 97.5 130 16 70/9 (29) 98 97.5 Lab Test 04/30/25 11:20 04/30/25 11:14 Range/Units White Blood Count 9.6 4.4-10.8 10^3/uL Red Blood Count 4.52 4.0-5.20 10^6/uL Hemoglobin 13.2 12.2-16.2 g/dL Hematocrit 40.1 36.0-46.0 % Mean Corpuscular Volume 88.6 80.0-100.0 fL Mean Corpuscular Hemoglobin 29.2 28.0-32.0 pg Mean Corpuscular Hemoglobin Concent 33.0 32.0-36.0 g/dL Red Cell Distribution Width 16.2 H 11.8-14.3 % Platelet Count 366 140-450 10^3/uL Mean Platelet Volume 8.4 6.9-10.8 fL Neutrophils (%) (Auto) 62.7 37.0-80.0 % Lymphocytes (%) (Auto) 19.7 10.0-50.0 % Monocytes (%) (Auto) 7.1 0.0-12.0 % Eosinophils (%) (Auto) 9.4 H 0.0-7.0 % Basophils (%) (Auto) 1.1 0.0-2.0 % Neutrophils # (Auto) 6.0 1.6-8.6 10 ^3/uL Lymphocytes # (Auto) 1.9 0.4-5.4 10 ^3/uL Monocytes # (Auto) 0.7 0-1.3 10 ^3/uL Eosinophils # (Auto) 0.9 H 0-0.8 10 ^3/uL Basophils # (Auto) 0.1 0-0.2 10 ^3/uL Nucleated Red Blood Cells 0.1 % Sodium Level 142 136-145 mmol/L Potassium Level 3.8 3.5-5.1 mmol/L Chloride Level 108 H 98-107 mmol/L Carbon Dioxide Level 27 20-31 mmol/L Anion Gap 7 5-15 Blood Urea Nitrogen 12 9-23 mg/dL Creatinine 0.71 0.550-1.02 mg/dL Glomerular Filtration Rate Calc 105 >90 mL/min BUN/Creatinine Ratio 16.9 10.0-20.0 Serum Glucose 80 74-106 mg/dL Lactic Acid Level 1.2 0.4-2.0 mmol/L Calcium Level 9.7 8.7-10.4 mg/dL Urine Color Light-yellow Yellow Urine Clarity Clear Clear Urine pH 6.0 5.0-9.0 Urine Specific [place] 1.019 1.001-1.035 Urine Protein Negative Negative Urine Ketones Negative Negative Urine Blood Negative Negative /uL Urine Nitrite Negative Negative Urine Bilirubin Negative Negative Urine Urobilinogen Normal Negative mg/dL Urine Leukocyte Esterase Negative Negative /uL Urine RBC <1 0 - 4 /hpf Urine Microscopic WBC 1 0-5 /HPF Urine Squamous Epithelial Cells Few <5 /hpf Urine Bacteria Few H None Seen /hpf Urine Glucose Normal Normal mg/dL Urine Test Negative Negative Current Medications Medications (Trade) Dose Ordered Sig/Reg Route Start Time Stop Time Status Last Admin Ceftriaxone Sodium 50 ml @ 100 mls/hr ONCE ONCE IV 04/30/25 11:15 04/30/25 11:44 DC 04/30/25 11:48 Clindamycin Phosphate 50 ml @ 50 mls/hr ONCE ONCE IV 04/30/25 11:15 04/30/25 12:14 DC 04/30/25 11:48 Ketorolac Tromethamine (Toradol Injection) 30 mg ONCE ONCE IV 04/30/25 11:15 04/30/25 11:17 DC 04/30/25 11:48 X-Ray, Labs, Meds, VS Comment EXTERNAL MEDICAL RECORDS REVIEWED: [NONE] INDEPENDENT HISTORIANS: [NONE] SOCIAL DETERMINANTS OF HEALTH: [NONE] LABS ORDERED: WHITE SHOE EXAMINER, CMP, BMP, UA REVIEWED AND INTERPRETED RESULTS: NONE IMAGING ORDERED: NONE TREATMENTS ORDERED: HEPLOCK IV, CLINDAMYCIN 900MG IV, TORADOL INJECTION 30 MG/ML, INTRAVENOUS FLUIDS PROCEDURES PERFORMED: NONE CRITICAL CARE TIME: NONE I HAVE DISCUSSED THE PATIENT WITH THE ATTENDING PHYSICIAN DR. MÁRQUEZ AND HE AGREES WITH THE PATIENT'S PLAN OF CARE AND DISPOS SHARED DECISION MAKING: DUE TO PATIENTS COMPLAINTS, PATIENT IS POSITIVE FOR CELLULITIS WITH PAIN AND SWELLING. PATIENT NEEDS TO BE ADMITTED TO THE HOSPITAL FOR IV ANTIBIOTIC TREATMENT. PATIENT WILL BE ADMITTED TODAY FOR FURTHER CARE AND EVALUATION. Images Reviewed?: Images reviewed and evaluated by me Time of 1ST Reevaluation: 12:27 Reevaluation 1ST: Unchanged Time of 2ND Reevaluation: 14:21 Reevaluation 2ND: Unchanged Patient Education/Counseling: Diagnosis, Treatment Family Education/Counseling: Diagnosis, Treatment, No Family Present Sepsis Sepsis Reasesment Focused Exam Orders: Laboratory Tests 04/30/25 11:20: Lactic Acid Level 1.2 Departure 1 Departure Time of Disposition: 13:04 Impression: Primary Impression: Cellulitis of left lower leg Disposition: ADMITTED INPATIENT Condition: Serious Critical Care Note Critical Care Time?: No Stability Stability form required: Yes Unstable for transfer: Requires medication, ED Physician Assesment, Possible rapid decline Heart Score Heart Score: Heart Score Response (Comments) Value History N/A 0 EKG N/A 0 Age N/A 0 Risk Factors N/A 0 Troponin N/A 0 Total 0 SUZANNA CALIXTO Apr 30, 2025 12:19
[2025-04-30 12:20] LABS: BUN/Creatinine Ratio 16.9 (10.0-20.0); Blood Urea Nitrogen 12 mg/dL (9-23); Glucose 80 mg/dL (74-106)
[2025-04-30 12:21] LABS: Chloride 108 mmol/L (98-107)
[2025-04-30] MEDS ORDERED: ACETAMINOPHEN 325 MG TAB PO PRN (14:45)
[2025-04-30] MEDS ORDERED: ONDANSETRON HCL 4 MG/2 ML VIAL IV PRN (14:45)
--- NOTE | 2025-04-30 15:09 | DVHHP2 ---
History of Present Illness Reason for Visit: Right knee cellulitis History of Present Illness 49-year-old female presented to the ED with complaint of right lower leg pain, redness and swelling, patient states 2 weeks go she obtained an abrasion after tripping and falling at home she managed the abrasion at home and kept it clean and symptoms have been worsening, more recently about 4 days ago, walking and standing increases leg pain, she has yellow drainage from abrasion site. WBCs 9.6, lactic acid 1.2. Patient will be admitted to medical/surgical further treatment. Past Medical History MS Past Surgical History Denies Family History Denies Smoke: No ALCOHOL: none Drugs: None Lives: Alone Review of Systems Constitutional: No: Fever, Chills, Sweats, Weakness, Malaise, Other Eyes: No: Pain, Vision change, Conjunctivae inflammation, Eyelid inflammation, Other, Redness ENT: No: Ear pain, Ear discharge, Nose pain, Nose discharge, Nose congestion, Mouth pain, Mouth swelling, Throat pain, Throat swelling, Other Respiratory: No: Cough, Dry, Shortness of breath, SOB with excertion, Wheezing, Hemoptysis, Pleuritic Pain, Sputum, Wheezing, Other Cardiovascular: No: Chest Pain, Palpitations, Orthopnea, Paroxysmal Noc. Dyspnea, Edema, Lt Headedness, Other Gastrointestinal: No: Nausea, Vomiting, Abdominal Pain, Diarrhea, Constipation, Melena, Hematochezia, Other Genitourinary: No Dysuria, No Frequency, No Incontinence, No Hematuria, No Retention, No Other Musculoskeletal: leg pain (right Knee); No: other, neck pain, shoulder pain, arm pain, back pain, hand pain, foot pain Skin: Other (Redness and swelling around the right knee); No: Rash, Lesions, Jaundice, Bruising Neurological: No: Weakness, Numbness, Incoordination, Change in speech, Confusion, Seizures, Other Allergies: Coded Allergies: NO KNOWN ALLERGIES (Unverified , 11/04/21) Medications Current Medications Medications Dose Ordered Sig/Reg Route Start Time Stop Time Status Last Admin Dose Admin Acetaminophen 325 mg Q4HP PRN PO 04/30/25 14:45 UNV Acetaminophen/ Hydrocodone Bitart 1 tab Q4HP PRN PO 04/30/25 14:45 UNV Ondansetron HCl 4 mg Q4HP PRN IV 04/30/25 14:45 UNV Ketorolac Tromethamine 15 mg Q6HPRN PRN IV 04/30/25 14:45 05/05/25 14:44 UNV Clindamycin Phosphate 50 ml @ 50 mls/hr Q8HR IV 04/30/25 22:00 UNV Exam Vital Signs Vital Signs Date Time Temp Pulse Resp B/P (MAP) Pulse Ox O2 Delivery O2 Flow Rate FiO2 04/30/25 13:15 98.4 98 18 114/78 (90) 98 98.4 04/30/25 11:49 Room Air* 0 21 General Appearance: Alert, Oriented X3, Cooperative, No acute distress HEENT: Atraumatic, PERRLA, EOMI, Mucous membr. moist/pink Respiratory: Clear to auscultation, Normal air movement Cardiovascular: Regular rate, Normal S1, Normal S2, No murmurs Abdominal: Normal bowel sounds, Soft, No tenderness, No hepatospenomegaly, No masses Extremities: No clubbing, No cyanosis, Normal pulses, Other (Right knee redness, tenderness and edema) Skin: No rashes, No breakdown (Right knee abrasion with drainage) Neuro: Normal gait, Normal speech, Strength at 5/5 X4 ext, Normal tone, Sensation intact, Cranial nerves 3-12 NL, Reflexes 2+ Psych/Mental Status: Mental status NL, Mood NL Labs/Xrays Reviewed Labs Test 04/30/25 11:20 04/30/25 11:14 Range/Units White Blood Count 9.6 4.4-10.8 10^3/uL Red Blood Count 4.52 4.0-5.20 10^6/uL Hemoglobin 13.2 12.2-16.2 g/dL Hematocrit 40.1 36.0-46.0 % Mean Corpuscular Volume 88.6 80.0-100.0 fL Mean Corpuscular Hemoglobin 29.2 28.0-32.0 pg Mean Corpuscular Hemoglobin Concent 33.0 32.0-36.0 g/dL Red Cell Distribution Width 16.2 H 11.8-14.3 % Platelet Count 366 140-450 10^3/uL Mean Platelet Volume 8.4 6.9-10.8 fL Neutrophils (%) (Auto) 62.7 37.0-80.0 % Lymphocytes (%) (Auto) 19.7 10.0-50.0 % Monocytes (%) (Auto) 7.1 0.0-12.0 % Eosinophils (%) (Auto) 9.4 H 0.0-7.0 % Basophils (%) (Auto) 1.1 0.0-2.0 % Neutrophils # (Auto) 6.0 1.6-8.6 10 ^3/uL Lymphocytes # (Auto) 1.9 0.4-5.4 10 ^3/uL Monocytes # (Auto) 0.7 0-1.3 10 ^3/uL Eosinophils # (Auto) 0.9 H 0-0.8 10 ^3/uL Basophils # (Auto) 0.1 0-0.2 10 ^3/uL Nucleated Red Blood Cells 0.1 % Sodium Level 142 136-145 mmol/L Potassium Level 3.8 3.5-5.1 mmol/L Chloride Level 108 H 98-107 mmol/L Carbon Dioxide Level 27 20-31 mmol/L Anion Gap 7 5-15 Blood Urea Nitrogen 12 9-23 mg/dL Creatinine 0.71 0.550-1.02 mg/dL Glomerular Filtration Rate Calc 105 >90 mL/min BUN/Creatinine Ratio 16.9 10.0-20.0 Serum Glucose 80 74-106 mg/dL Lactic Acid Level 1.2 0.4-2.0 mmol/L Calcium Level 9.7 8.7-10.4 mg/dL Urine Color Light-yellow Yellow Urine Clarity Clear Clear Urine pH 6.0 5.0-9.0 Urine Specific [place] 1.019 1.001-1.035 Urine Protein Negative Negative Urine Ketones Negative Negative Urine Blood Negative Negative /uL Urine Nitrite Negative Negative Urine Bilirubin Negative Negative Urine Urobilinogen Normal Negative mg/dL Urine Leukocyte Esterase Negative Negative /uL Urine RBC <1 0 - 4 /hpf Urine Microscopic WBC 1 0-5 /HPF Urine Squamous Epithelial Cells Few <5 /hpf Urine Bacteria Few H None Seen /hpf Urine Glucose Normal Normal mg/dL Urine Test Negative Negative SEPSIS Sepsis Screen Date sepsis recognized/suspect: Apr 30, 2025 Time Sepsis recognized/suspect: 1104 Recent Procedure: No On Antibiotic Therapy: No Respiratory Rate >20: No Heart Rate >90: Yes Temp<36 C (96.8 F) or >38.3 C: No SBP <90 or MAP <65 mmHG: No New Acute Mental Status Change: No Is the patient on CPAP, BIPAP,: No Physician Orders Blood Culture (04/30/25 11:14) He[place]ock Iv (04/30/25 ) Admit (04/30/25 14:34) Allergies (04/30/25 14:34) Code Status (04/30/25 14:34) Acetaminophen Tablet (Tylenol Tablet) (04/30/25 14:45) Hydrocodone-Acet 5/325mg Tab ([place] 5/32 (04/30/25 14:45) Ondansetron Hcl (Zofran) (04/30/25 14:45) Complete Blood Count (05/01/25 04:00) Comprehensive Metabolic Panel (05/01/25 04:00) Condition: Serious (04/30/25 14:34) BRP (04/30/25 14:34) Regular Diet (04/30/25 Dinner) Ketorolac Injection (Toradol Injection) (04/30/25 14:45) Clindamycin 900mg Iv (Cleocin Iv) (04/30/25 22:00) * Wound Consult (04/30/25 ) Wound Culture W/ Gs (04/30/25 14:34) Right Lower Extremity Ultrasou (04/30/25 14:41) Vital Signs Date Time Temp Pulse Resp B/P (MAP) Pulse Ox O2 Delivery O2 Flow Rate FiO2 04/30/25 13:15 98.4 98 18 114/78 (90) 98 98.4 04/30/25 11:49 74 12 95 Room Air* 0 21 04/30/25 11:05 97.5 130 16 70/9 (29) 98 97.5 Laboratory Tests Test 04/30/25 11:20 Lactic Acid Level 1.2 mmol/L (0.4-2.0) White Blood Count 9.6 10^3/uL (4.4-10.8) Medications Medications Dose Ordered Sig/Reg Route Start Time Stop Time Status Last Admin Dose Admin Ceftriaxone Sodium 50 ml @ 100 mls/hr ONCE ONCE IV 04/30/25 11:15 04/30/25 11:44 DC 04/30/25 11:48 100 MLS/HR Clindamycin Phosphate 50 ml @ 50 mls/hr ONCE ONCE IV 04/30/25 11:15 04/30/25 12:14 DC 04/30/25 11:48 50 MLS/HR Ketorolac Tromethamine 30 mg ONCE ONCE IV 04/30/25 11:15 04/30/25 11:17 DC 04/30/25 11:48 30 MG Assessment/Plan Assessment/Plan Right knee cellulitis/rule out effusion Admit to medical/surgical On clindamycin Pain meds p.r.n./Zofran p.r.n. 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 Procedure Category Date Status Time Admit ADMIT 04/30/25 Transmitted 14:34 Allergies NATHANAEL 04/30/25 In Process 14:34 Code Status CODE 04/30/25 Transmitted 14:34 Acetaminophen Tablet PHA 04/30/25 Logged (Tylenol Tablet) 14:45 Hydrocodone-Acet PHA 04/30/25 Logged 5/325mg Tab ([place] 14:45 Ondansetron Hcl PHA 04/30/25 Logged (Zofran) 14:45 Complete Blood Count LAB 05/01/25 Verified 04:00 Comprehensive LAB 05/01/25 Verified Metabolic Panel 04:00 Condition: Serious NATHANAEL 04/30/25 In Process 14:34 BRP NATHANAEL 04/30/25 In Process 14:34 Regular Diet DIET 04/30/25 Transmitted Dinner Ketorolac Injection PHA 04/30/25 Logged (Toradol Injection) 14:45 Clindamycin 900mg Iv PHA 04/30/25 Logged (Cleocin Iv) 22:00 * Wound Consult CONS 04/30/25 Transmitted Wound Culture W/ Gs ADALBERTO 04/30/25 Logged 14:34 Right Lower Extremity US 04/30/25 Logged Ultrasou 14:41 Date of Service: Apr 30, 2025 Billing Provider: OSEI MENCHACA Common Visit Codes: [id number] INP/OBS CARE (HIGH) OSEI MENCHACAP Apr 30, 2025 15:09
--- NOTE | 2025-04-30 15:39 | DVH ---
Exam: US RIGHT LOWER EXTREMITY ULTRASOU Date: 04/30/2025 02:59 PM Clinical History: Right knee cellulitis Comparison: None Technique: Targeted sonographic evaluation of the soft tissues of the right knee was obtained utilizing grayscal e and color Doppler imaging. Findings: Fluid is noted in the right knee. It appears to be greater over the lateral portion of the knee than midline. Collection measures 4.3 x 0.3 x 2.9 cm IMPRESSION: 1. Joint effusion right knee measures 4.3 x 0.3 x 2.9 cm. 2. Fluid collection larger over the lateral portion of the knee than midline. HS:Y
--- NOTE | 2025-04-30 18:37 | DVH ---
CT RIGHT KNEE HISTORY: Right knee joint effusion/cellulitis COMPARISON: None TECHNIQUE: Multiple axial CT images of the right knee were obtained without intra-articular contrast. Coronal and sagittal bone and soft tissue reformations were also obtained. One or more of the [facility] wing radiation dose reduction techniques were used for this examination: automated exposure control, adjustment of the mA and/or kV according to patient size, use of iterative reconstruction technique. FINDINGS: Slightly limited study due to motion. Mild skin thickening and subcutaneous edema noted at the anterior aspect of the right knee and upper calf. No focal abscess identified. No significant right knee joint effusion. No acute fracture or dis location. No CT evidence of osteomyelitis. IMPRESSION: 1. Mild skin thickening and subcutaneous edema at the anterior aspect of the right knee and upper babak f, which may suggest cellulitis or bland edema. Correlate with physical exam. 2. No abscess or significant joint effusion at the right knee.
[2025-04-30] MEDS: KETOROLAC TROMETH 30 MG/ML 1ML VIAL IV PRN (20:40)
[2025-04-30 23:11] VITALS: BP 128/92; PULSE 86; RESP 18; TEMP 97.6; O2SAT 98
[2025-04-30 23:31] VITALS: PULSE 86; RESP 18; O2SAT 98
[2025-05-01] VITALS (8 sets, daily range): BP systolic 110–124; BP diastolic 73–87; PULSE 77–94; RESP 17–20; TEMP 97.2–98.4; O2SAT 95–100
[2025-05-01] MEDS: HYDROcodone-ACET 5/325MG TAB PO PRN
[2025-05-01] MEDS: CLINDAMYCIN 900MG IV 50 ML IV SCH ×2 (00:28→08:14)
[2025-05-01] MEDS ORDERED: GLAT1INJ SC (00:50)
[2025-05-01] MEDS ORDERED: CLIN150C PO (00:52)
[2025-05-01 07:04] LABS: Hematocrit 36.4 % (36.0-46.0); Hemoglobin 12.2 g/dL (12.2-16.2); Mean Corpuscular Hemoglobin 29.7 pg (28.0-32.0); Mean Corpuscular Volume 88.8 fL (80.0-100.0); Nucleated Red Blood Cells % 0.1 %
[2025-05-01 07:23] LABS: Alanine Aminotransferase 19 U/L (7-40); Albumin 3.8 g/dL (3.2-4.8); Alkaline Phosphatase 60 U/L (46-116); Anion Gap 6 (5-15); BUN/Creatinine Ratio 22.9 (10.0-20.0); Blood Urea Nitrogen 16 mg/dL (9-23); Calcium 9.1 mg/dL (8.7-10.4); Carbon Dioxide 28 mmol/L (20-31); Chloride 107 mmol/L (98-107); Glucose 86 mg/dL (74-106); Potassium 4.1 mmol/L (3.5-5.1); Sodium 141 mmol/L (136-145); Total Protein 6.1 g/dL (5.7-8.2)
[2025-05-01 07:24] LABS: Bilirubin, Total 0.2 mg/dL (0.2-1.0)
[2025-05-01] MEDS: ENOXAPARIN SOD 40 MG/0.4 ML SYRINGE SC SCH (08:23)
[2025-05-01] MEDS ORDERED: CETI10TA2 PO (13:42)
--- NOTE | 2025-05-01 13:58 | DVHPN2 ---
Subjective The patient is seen and examined at bedside. Complain of severe pain on the right knee. Reviewed: Care Plan, H&P, Labs, Medications, Previous Orders, Radiology Changes from previous H/P or p: No Changes Eyes: No Pain, No Vision change, No Conjunctivae inflammation, No Eyelid inflammation, No Other, No Redness ENT: No Ear pain, No Ear discharge, No Nose pain, No Nose discharge, No Nose congestion, No Mouth pain, No Mouth swelling, No Throat pain, No Throat swelling, No Other Cardiovascular: No Chest Pain, No Palpitations, No Orthopnea, No Paroxysmal Noc. Dyspnea, No Edema, No Lt Headedness, No Other Respiratory: No Cough, No Dry, No Shortness of breath, No SOB with excertion, No Wheezing, No Hemoptysis, No Pleuritic Pain, No Sputum, No Other Gastrointestinal: No Nausea, No Vomiting, No Abdominal Pain, No Diarrhea, No Constipation, No Melena, No Hematochezia, No Other Genitourinary: No Dysuria, No Frequency, No Incontinence, No Hematuria, No Retention, No Other Musculoskeletal: No other, No neck pain, No shoulder pain, No arm pain, No back pain, No hand pain; leg pain (right Knee); No foot pain Skin: No Rash, No Lesions, No Jaundice, No Bruising; Other (Redness and swelling around the right knee) Objective Vitals Vital Signs Date Time Temp Pulse Resp B/P (MAP) Pulse Ox O2 Delivery O2 Flow Rate FiO2 05/01/25 13:00 97.2 77 20 118/73 (88) 100 97.2 05/01/25 08:10 Room Air* 0 21 Intake/Output Intake and Output 05/01/25 07:00 Intake Total 250 ml Balance 250 ml Intake Oral 100 ml IV Total 150 ml General Appearance: Alert, Oriented X3, Cooperative, No acute distress HEENT: Atraumatic, PERRLA, EOMI, Mucous membr. moist/pink Neck: Supple Lungs: Clear to auscultation, Normal air movement Cardiovascular: Regular rate, Normal S1, Normal S2, No murmurs, Gallops, Rubs Abdomen: Normal bowel sounds, Soft Neuro: Cranial nerves 3-12 NL Skin: Wounds, Other (Cellulitis on the right knee with erythema and some sipping fluid, crack wound) Psych/Mental Status: Mental status NL Medications Current Medications Medications Dose Ordered Sig/Reg Route Start Time Stop Time Status Last Admin Dose Admin Acetaminophen 325 mg Q4HP PRN PO 04/30/25 14:45 Acetaminophen/ Hydrocodone Bitart 1 tab Q4HP PRN PO 04/30/25 14:45 05/01/25 08:43 1 TAB Ondansetron HCl 4 mg Q4HP PRN IV 04/30/25 14:45 Ketorolac Tromethamine 15 mg Q6HPRN PRN IV 04/30/25 14:45 05/05/25 14:44 05/01/25 11:36 15 MG Enoxaparin Sodium 40 mg DAILY SC 05/01/25 10:00 05/01/25 10:30 40 MG Clindamycin Phosphate 50 ml @ 50 mls/hr Q8H IV 05/01/25 08:30 05/01/25 08:14 50 MLS/HR Loratadine 10 mg DAILY PO 05/02/25 10:00 UNV Laboratory Results Laboratory Tests 05/01/25 05:12 Chemistry Test 05/01/25 05:12 Albumin 3.8 g/dL (3.2-4.8) Calcium Level 9.1 mg/dL (8.7-10.4) Total Protein 6.1 g/dL (5.7-8.2) LFT Test 05/01/25 05:12 Alanine Aminotransferase (ALT) 19 U/L (7-40) Alkaline Phosphatase 60 U/L (46-116) Aspartate Amino Transferase (AST) 17 U/L (13-40) Total Bilirubin 0.2 mg/dL (0.2-1.0) Urinalysis Test 04/30/25 11:14 Urine Color Light-yellow (Yellow) Urine Clarity Clear (Clear) Urine pH 6.0 (5.0-9.0) Urine Specific [place] 1.019 (1.001-1.035) Urine Protein Negative (Negative) Urine Ketones Negative (Negative) Urine Blood Negative /uL (Negative) Urine Nitrite Negative (Negative) Urine Bilirubin Negative (Negative) Urine Urobilinogen Normal mg/dL (Negative) Urine Leukocyte Esterase Negative /uL (Negative) Urine RBC <1 /hpf (0 - 4) Urine Microscopic WBC 1 /HPF (0-5) Urine Squamous Epithelial Cells Few /hpf (<5) Urine Bacteria Few /hpf (None Seen) H Urine Glucose Normal mg/dL (Normal) Urine Test Negative (Negative) Microbiology Microbiology Date/Time Source Procedure Growth Status 05/01/25 00:00 Knee Gram Stain - Final Resulted 05/01/25 00:00 Knee Wound Culture Pending Resulted 04/30/25 11:30 Blood Blood Culture - Preliminary NO GROWTH AFTER 24 HOURS OF INCUBATION. Resulted Labs and/or images reviewed: Labs reviewed by me Assessment/Plan Assessment/Plan Right knee cellulitis/rule out effusion Status post mechanical for in the backyard with right knee scratch. Continuing current management. Continuing with IV antibiotic clindamycin. Continuing with pain medication IV and oral [place] Continuing wound care. We will radha the cellulitis and see if this improves with IV antibiotic. Discussed with and the patient at bedside. This medical document was created using an electronic medical record system with [employer] direct computerized dictation system. Although this document has been carefully reviewed, there may still be some phonetic and typographical errors. These areas are purely typographical due to imperfections of the software programs, and do not reflect any compromise in the patient's medical care. Plan discussed with: Patient, Spouse My Orders Orders - MICA MOORE MD Procedure Category Date Status Time Loratadine Tablet PHA 05/02/25 Logged (Claritin Tablet) 10:00 Loratadine Tablet PHA 05/01/25 Logged (Claritin Tablet) 14:00 Date of Service: May 01, 2025 Billing Provider: MICA MOORE MD Common Visit Codes: [id number] INP/OBS CARE(HIGH) MICA MOORE MD May 01, 2025 13:58
[2025-05-01] MEDS: LORATADINE 10 MG TAB PO ONE (15:36)
[2025-05-02] VITALS (8 sets, daily range): BP systolic 117–135; BP diastolic 76–94; PULSE 75–92; RESP 18–20; TEMP 96.2–98.5; O2SAT 97–100
[2025-05-02] MEDS: LORATADINE 10 MG TAB PO SCH (08:51)
--- NOTE | 2025-05-02 14:51 | DVHPN2 ---
Subjective The patient is seen and examined at bedside. No complaint today. The patient however worry about her right knee which per patient the "rash" is not improve that much. Reviewed: Care Plan, H&P, Labs, Medications, Previous Orders, Radiology Changes from previous H/P or p: No Changes Eyes: No Pain, No Vision change, No Conjunctivae inflammation, No Eyelid inflammation, No Other, No Redness ENT: No Ear pain, No Ear discharge, No Nose pain, No Nose discharge, No Nose congestion, No Mouth pain, No Mouth swelling, No Throat pain, No Throat swelling, No Other Cardiovascular: No Chest Pain, No Palpitations, No Orthopnea, No Paroxysmal Noc. Dyspnea, No Edema, No Lt Headedness, No Other Respiratory: No Cough, No Dry, No Shortness of breath, No SOB with excertion, No Wheezing, No Hemoptysis, No Pleuritic Pain, No Sputum, No Other Gastrointestinal: No Nausea, No Vomiting, No Abdominal Pain, No Diarrhea, No Constipation, No Melena, No Hematochezia, No Other Genitourinary: No Dysuria, No Frequency, No Incontinence, No Hematuria, No Retention, No Other Musculoskeletal: No other, No neck pain, No shoulder pain, No arm pain, No back pain, No hand pain; leg pain (right Knee); No foot pain Skin: No Rash, No Lesions, No Jaundice, No Bruising; Other (Redness and swelling around the right knee) Objective Vitals Vital Signs Date Time Temp Pulse Resp B/P (MAP) Pulse Ox O2 Delivery O2 Flow Rate FiO2 05/02/25 12:37 97.3 75 20 129/76 (93) 99 97.3 05/02/25 08:00 Room Air* 0 21 Intake/Output Intake and Output 05/02/25 07:00 Intake Total 1300 ml Balance 1300 ml Intake Oral 1150 ml IV Total 150 ml # Voids 5 General Appearance: Alert, Oriented X3, Cooperative, No acute distress HEENT: Atraumatic, PERRLA, EOMI, Mucous membr. moist/pink Neck: Supple Lungs: Clear to auscultation, Normal air movement Cardiovascular: Regular rate, Normal S1, Normal S2, No murmurs, Gallops, Rubs Abdomen: Normal bowel sounds, Soft, No tenderness Neuro: Cranial nerves 3-12 NL Psych/Mental Status: Mental status NL Medications Current Medications Medications Dose Ordered Sig/Reg Route Start Time Stop Time Status Last Admin Dose Admin Acetaminophen 325 mg Q4HP PRN PO 04/30/25 14:45 Acetaminophen/ Hydrocodone Bitart 1 tab Q4HP PRN PO 04/30/25 14:45 05/01/25 15:42 1 TAB Ondansetron HCl 4 mg Q4HP PRN IV 04/30/25 14:45 Ketorolac Tromethamine 15 mg Q6HPRN PRN IV 04/30/25 14:45 05/05/25 14:44 05/02/25 09:04 15 MG Enoxaparin Sodium 40 mg DAILY SC 05/01/25 10:00 05/02/25 08:52 40 MG Clindamycin Phosphate 50 ml @ 50 mls/hr Q8H IV 05/01/25 08:30 05/02/25 08:51 50 MLS/HR Loratadine 10 mg DAILY PO 05/02/25 10:00 05/02/25 08:51 10 MG Patient Own Medication 1 TUTHSA SC 05/04/25 10:00 Laboratory Results Laboratory Tests 05/01/25 05:12 Urinalysis Test 04/30/25 11:14 Urine Color Light-yellow (Yellow) Urine Clarity Clear (Clear) Urine pH 6.0 (5.0-9.0) Urine Specific [place] 1.019 (1.001-1.035) Urine Protein Negative (Negative) Urine Ketones Negative (Negative) Urine Blood Negative /uL (Negative) Urine Nitrite Negative (Negative) Urine Bilirubin Negative (Negative) Urine Urobilinogen Normal mg/dL (Negative) Urine Leukocyte Esterase Negative /uL (Negative) Urine RBC <1 /hpf (0 - 4) Urine Microscopic WBC 1 /HPF (0-5) Urine Squamous Epithelial Cells Few /hpf (<5) Urine Bacteria Few /hpf (None Seen) H Urine Glucose Normal mg/dL (Normal) Urine Test Negative (Negative) Microbiology Microbiology Date/Time Source Procedure Growth Status 05/01/25 00:00 Knee Gram Stain - Final Resulted 05/01/25 00:00 Knee Wound Culture - Preliminary Resulted 04/30/25 11:30 Blood Blood Culture - Preliminary NO GROWTH AFTER 48 HOURS OF INCUBATION. Resulted Labs and/or images reviewed: Labs reviewed by me Assessment/Plan Assessment/Plan Right knee cellulitis/rule out effusion Status post mechanical for in the backyard with right knee scratch. Continuing current management. Continuing with IV antibiotic. Since the cellulitis is minimal improved with clindamycin. Today, the wound look worsening. I will change the IV antibiotic to Zosyn 3.375 g IV Q 8 hours and vancomycin pharmacy to dose. Continuing with pain medication IV and oral [place] Continuing wound care. We will continuing to monitor the radha the cellulitis and see if this improves with IV antibiotic. We will follow up with culture. So far is negative. Discussed with and the patient at bedside. This medical document was created using an electronic medical record system with [employer] direct computerized dictation system. Although this document has been carefully reviewed, there may still be some phonetic and typographical errors. These areas are purely typographical due to imperfections of the software programs, and do not reflect any compromise in the patient's medical care. Plan discussed with: Patient, Spouse Date of Service: May 02, 2025 Billing Provider: MICA MOORE MD Common Visit Codes: [id number] INP/OBS CARE(HIGH) MICA MOORE MD May 02, 2025 14:51
[2025-05-02] MEDS: diphenhdrAMINE HCL 25 MG CAP PO ONE (21:31)
[2025-05-03] VITALS (8 sets, daily range): BP systolic 91–133; BP diastolic 49–90; PULSE 66–102; RESP 14–20; TEMP 97.3–98.6; O2SAT 96–100
[2025-05-03] MEDS ORDERED: VANCOMYCIN PER PHARMACY 0 MG IV SCH (07:00)
[2025-05-03 09:58] LABS: Hematocrit 41.3 % (36.0-46.0); Hemoglobin 13.7 g/dL (12.2-16.2); Mean Corpuscular Hemoglobin 29.3 pg (28.0-32.0); Mean Corpuscular Volume 88.6 fL (80.0-100.0); Nucleated Red Blood Cells % 0.0 %
[2025-05-03 10:06] LABS: Chloride 105 mmol/L (98-107); Potassium 3.7 mmol/L (3.5-5.1); Sodium 141 mmol/L (136-145)
[2025-05-03 10:07] LABS: Anion Gap 6 (5-15); Calcium 9.4 mg/dL (8.7-10.4); Carbon Dioxide 30 mmol/L (20-31)
[2025-05-03 10:12] LABS: BUN/Creatinine Ratio 17.8 (10.0-20.0); Blood Urea Nitrogen 13 mg/dL (9-23); Glucose 96 mg/dL (74-106)
--- NOTE | 2025-05-03 12:32 | DVHPN2 ---
Subjective The patient is seen and examined at bedside. Complains of itchiness in the cellulitis area Reviewed: Care Plan, H&P, Labs, Medications, Previous Orders, Radiology Changes from previous H/P or p: No Changes Eyes: No Pain, No Vision change, No Conjunctivae inflammation, No Eyelid inflammation, No Other, No Redness ENT: No Ear pain, No Ear discharge, No Nose pain, No Nose discharge, No Nose congestion, No Mouth pain, No Mouth swelling, No Throat pain, No Throat swelling, No Other Cardiovascular: No Chest Pain, No Palpitations, No Orthopnea, No Paroxysmal Noc. Dyspnea, No Edema, No Lt Headedness, No Other Respiratory: No Cough, No Dry, No Shortness of breath, No SOB with excertion, No Wheezing, No Hemoptysis, No Pleuritic Pain, No Sputum, No Other Gastrointestinal: No Nausea, No Vomiting, No Abdominal Pain, No Diarrhea, No Constipation, No Melena, No Hematochezia, No Other Genitourinary: No Dysuria, No Frequency, No Incontinence, No Hematuria, No Retention, No Other Musculoskeletal: No other, No neck pain, No shoulder pain, No arm pain, No back pain, No hand pain; leg pain (right Knee); No foot pain Skin: No Rash, No Lesions, No Jaundice, No Bruising; Other (Redness and swelling around the right knee) Objective Vitals Vital Signs Date Time Temp Pulse Resp B/P (MAP) Pulse Ox O2 Delivery O2 Flow Rate FiO2 05/03/25 09:00 98.3 78 16 109/71 (84) 100 98.3 05/02/25 20:00 Room Air* 0 21 Intake/Output Intake and Output 05/03/25 07:00 Intake Total 1972 ml Output Total 3 ml Balance 1969 ml Intake Oral 1822 ml IV Total 150 ml Output Urine Total 3 ml # Voids 2 General Appearance: Alert, Oriented X3, Cooperative, No acute distress HEENT: Atraumatic, PERRLA, EOMI, Mucous membr. moist/pink Neck: Supple Lungs: Clear to auscultation, Normal air movement Cardiovascular: Regular rate, Normal S1, Normal S2, No murmurs, Gallops, Rubs Abdomen: Normal bowel sounds, Soft, No tenderness Neuro: Cranial nerves 3-12 NL Skin: Wounds, Other (Cellulitis on the right knee with erythema and some sipping fluid, crack wound) Psych/Mental Status: Mental status NL Medications Current Medications Medications Dose Ordered Sig/Reg Route Start Time Stop Time Status Last Admin Dose Admin Acetaminophen 325 mg Q4HP PRN PO 04/30/25 14:45 Acetaminophen/ Hydrocodone Bitart 1 tab Q4HP PRN PO 04/30/25 14:45 05/03/25 05:20 1 TAB Ondansetron HCl 4 mg Q4HP PRN IV 04/30/25 14:45 Ketorolac Tromethamine 15 mg Q6HPRN PRN IV 04/30/25 14:45 05/05/25 14:44 05/02/25 21:31 15 MG Enoxaparin Sodium 40 mg DAILY SC 05/01/25 10:00 05/03/25 08:42 40 MG Loratadine 10 mg DAILY PO 05/02/25 10:00 05/03/25 08:41 10 MG Patient Own Medication 1 TUTHSA SC 05/04/25 10:00 Piperacillin Sod/ Tazobactam Sod 100 ml @ 25 mls/hr Q8HR IV 05/03/25 14:00 Vancomycin HCl 0 ml @ 0 mls/hr UD IV 05/03/25 07:00 Vancomycin HCl 300 ml @ 200 mls/hr Q12H IV 05/03/25 22:00 Laboratory Results Laboratory Tests 05/03/25 09:26 Chemistry Test 05/03/25 09:26 Calcium Level 9.4 mg/dL (8.7-10.4) Urinalysis Test 04/30/25 11:14 Urine Color Light-yellow (Yellow) Urine Clarity Clear (Clear) Urine pH 6.0 (5.0-9.0) Urine Specific [place] 1.019 (1.001-1.035) Urine Protein Negative (Negative) Urine Ketones Negative (Negative) Urine Blood Negative /uL (Negative) Urine Nitrite Negative (Negative) Urine Bilirubin Negative (Negative) Urine Urobilinogen Normal mg/dL (Negative) Urine Leukocyte Esterase Negative /uL (Negative) Urine RBC <1 /hpf (0 - 4) Urine Microscopic WBC 1 /HPF (0-5) Urine Squamous Epithelial Cells Few /hpf (<5) Urine Bacteria Few /hpf (None Seen) H Urine Glucose Normal mg/dL (Normal) Urine Test Negative (Negative) Microbiology Microbiology Date/Time Source Procedure Growth Status 05/01/25 00:00 Knee Gram Stain - Final Resulted 05/01/25 00:00 Knee Wound Culture - Preliminary Resulted 04/30/25 11:30 Blood Blood Culture - Preliminary NO GROWTH AFTER 72 HOURS OF INCUBATION. Resulted Labs and/or images reviewed: Labs reviewed by me, Image(s) reviewed by me Assessment/Plan Assessment/Plan Right knee cellulitis/rule out effusion Status post mechanical for in the backyard with right knee scratch. Continuing current management. Continuing with IV antibiotic to Zosyn 3.375 g IV Q 8 hours and vancomycin pharmacy to dose. Continuing with pain medication IV and oral [place] Continuing wound care. We will continuing to monitor the radha the cellulitis and see if this improves with IV antibiotic. We will follow up with culture. So far is negative. Benadryl 50 mg IV Q 8 hours p.r.n. for itchiness This medical document was created using an electronic medical record system with [employer] direct computerized dictation system. Although this document has been carefully reviewed, there may still be some phonetic and typographical errors. These areas are purely typographical due to imperfections of the software programs, and do not reflect any compromise in the patient's medical care. Plan discussed with: Patient My Orders Orders - MICA MOORE MD Procedure Category Date Status Time * Wound Consult CONS 05/02/25 Transmitted Wound Culture W/ Gs ADALBERTO 05/02/25 In Process 23:31 Piperacillin-Tazob PHA 05/03/25 In Process 3.375gm (Zosyn 3.375g 14:00 Vancomycin Per PHA 05/03/25 In Process Pharmacy 07:00 Vancomycin 1.5gm/300ml PHA 05/03/25 In Process 22:00 Complete Blood Count LAB 05/04/25 Verified 04:00 Creatinine LAB 05/04/25 Verified 04:00 Vancomycin Per NATHANAEL 05/04/25 In Process Pharmacy [facility] 22:00 Vancomycin,Trough LAB 05/04/25 Verified 21:00 Date of Service: May 03, 2025 Billing Provider: MICA MOORE MD Common Visit Codes: [id number] INP/OBS CARE(HIGH) MICA MOORE MD May 03, 2025 12:32
[2025-05-03] MEDS: PIPERACILLIN-TAZOB 3.375GM 100 ML IV SCH (13:48)
[2025-05-03] MEDS: diphenhdrAMINE HCL 50 MG/1 ML VL IV PRN (17:08)
[2025-05-03] MEDS: VANCOMYCIN 1.5GM/300ML 300 ML IV SCH (21:41)
[2025-05-04] VITALS (8 sets, daily range): BP systolic 107–117; BP diastolic 66–87; PULSE 79–99; RESP 17–20; TEMP 97.7–98.3; O2SAT 97–100
[2025-05-04 06:08] LABS: Hematocrit 40.8 % (36.0-46.0); Hemoglobin 13.6 g/dL (12.2-16.2); Mean Corpuscular Hemoglobin 29.5 pg (28.0-32.0); Mean Corpuscular Volume 88.7 fL (80.0-100.0); Nucleated Red Blood Cells % 0.0 %
[2025-05-04] MEDS ORDERED: TIRZ5INJ2 SC (09:20)
--- NOTE | 2025-05-04 12:35 | DVHPN2 ---
Subjective The patient is seen and examined at bedside. Complains of itchiness in the cellulitis area Reviewed: Care Plan, H&P, Labs, Medications, Previous Orders, Radiology Changes from previous H/P or p: No Changes Eyes: No Pain, No Vision change, No Conjunctivae inflammation, No Eyelid inflammation, No Other, No Redness ENT: No Ear pain, No Ear discharge, No Nose pain, No Nose discharge, No Nose congestion, No Mouth pain, No Mouth swelling, No Throat pain, No Throat swelling, No Other Cardiovascular: No Chest Pain, No Palpitations, No Orthopnea, No Paroxysmal Noc. Dyspnea, No Edema, No Lt Headedness, No Other Respiratory: No Cough, No Dry, No Shortness of breath, No SOB with excertion, No Wheezing, No Hemoptysis, No Pleuritic Pain, No Sputum, No Other Gastrointestinal: No Nausea, No Vomiting, No Abdominal Pain, No Diarrhea, No Constipation, No Melena, No Hematochezia, No Other Genitourinary: No Dysuria, No Frequency, No Incontinence, No Hematuria, No Retention, No Other Musculoskeletal: No other, No neck pain, No shoulder pain, No arm pain, No back pain, No hand pain; leg pain (right Knee); No foot pain Skin: No Rash, No Lesions, No Jaundice, No Bruising; Other (Redness and swelling around the right knee) Objective Vitals Vital Signs Date Time Temp Pulse Resp B/P (MAP) Pulse Ox O2 Delivery O2 Flow Rate FiO2 05/04/25 09:00 98.0 99 20 113/78 (90) 97 98.0 05/04/25 08:00 Room Air* 0 21 Intake/Output Intake and Output 05/04/25 07:00 Intake Total 1260 ml Balance 1260 ml Intake Oral 460 ml IV Total 800 ml # Voids 7 # Bowel Movements 1 General Appearance: Alert, Oriented X3, Cooperative, No acute distress HEENT: Atraumatic, PERRLA, EOMI, Mucous membr. moist/pink Neck: Supple Lungs: Clear to auscultation, Normal air movement Cardiovascular: Regular rate, Normal S1, Normal S2, No murmurs, Gallops, Rubs Abdomen: Normal bowel sounds, Soft, No tenderness Neuro: Cranial nerves 3-12 NL Skin: Wounds, Other (Cellulitis on the right knee with erythema and some sipping fluid, crack wound) Psych/Mental Status: Mental status NL Medications Current Medications Medications Dose Ordered Sig/Reg Route Start Time Stop Time Status Last Admin Dose Admin Acetaminophen 325 mg Q4HP PRN PO 04/30/25 14:45 Acetaminophen/ Hydrocodone Bitart 1 tab Q4HP PRN PO 04/30/25 14:45 05/03/25 05:20 1 TAB Ondansetron HCl 4 mg Q4HP PRN IV 04/30/25 14:45 Ketorolac Tromethamine 15 mg Q6HPRN PRN IV 04/30/25 14:45 05/05/25 14:44 05/03/25 20:58 15 MG Enoxaparin Sodium 40 mg DAILY SC 05/01/25 10:00 05/04/25 09:14 40 MG Loratadine 10 mg DAILY PO 05/02/25 10:00 05/04/25 09:09 10 MG Patient Own Medication 1 TUTHSA SC 05/04/25 10:00 Piperacillin Sod/ Tazobactam Sod 100 ml @ 25 mls/hr Q8HR IV 05/03/25 14:00 05/04/25 05:13 25 MLS/HR Vancomycin HCl 0 ml @ 0 mls/hr UD IV 05/03/25 07:00 Vancomycin HCl 300 ml @ 200 mls/hr Q12H IV 05/03/25 22:00 05/04/25 09:11 200 MLS/HR Diphenhydramine HCl 50 mg Q8HPRN PRN IV 05/03/25 17:00 05/04/25 06:25 50 MG Laboratory Results Laboratory Tests 05/03/25 09:26 05/04/25 05:33 Urinalysis Test 04/30/25 11:14 Urine Color Light-yellow (Yellow) Urine Clarity Clear (Clear) Urine pH 6.0 (5.0-9.0) Urine Specific [place] 1.019 (1.001-1.035) Urine Protein Negative (Negative) Urine Ketones Negative (Negative) Urine Blood Negative /uL (Negative) Urine Nitrite Negative (Negative) Urine Bilirubin Negative (Negative) Urine Urobilinogen Normal mg/dL (Negative) Urine Leukocyte Esterase Negative /uL (Negative) Urine RBC <1 /hpf (0 - 4) Urine Microscopic WBC 1 /HPF (0-5) Urine Squamous Epithelial Cells Few /hpf (<5) Urine Bacteria Few /hpf (None Seen) H Urine Glucose Normal mg/dL (Normal) Urine Test Negative (Negative) Microbiology Microbiology Date/Time Source Procedure Growth Status 05/02/25 23:35 Knee Right Gram Stain Pending Resulted 05/02/25 23:35 Knee Right Wound Culture - Preliminary Resulted 04/30/25 11:30 Blood Blood Culture - Preliminary NO GROWTH AFTER 72 HOURS OF INCUBATION. Resulted Labs and/or images reviewed: Labs reviewed by me Assessment/Plan Assessment/Plan Right knee cellulitis/rule out effusion Status post mechanical for in the backyard with right knee scratch. Continuing current management. Continuing with IV antibiotic to Zosyn 3.375 g IV Q 8 hours and vancomycin pharmacy to dose. Continuing with pain medication IV and oral [place] Continuing wound care. We will continuing to monitor the radha the cellulitis and see if this improves with IV antibiotic. We will follow up with culture. So far is negative. Benadryl 50 mg IV Q 8 hours p.r.n. for itchiness Discharge planning. Resume home meds. This medical document was created using an electronic medical record system with [employer] [facility] direct computerized dictation system. Although this document has been carefully reviewed, there may still be some phonetic and typographical errors. These areas are purely typographical due to imperfections of the software programs, and do not reflect any compromise in the patient's medical care. Plan discussed with: Patient My Orders Orders - MICA MOORE MD Procedure Category Date Status Time Cleanse Wound With NATHANAEL 05/03/25 In Process Wound Clean 11:35 Diphenhdramine PHA 05/03/25 In Process Injection (Benadryl 17:00 Creatinine LAB 05/05/25 Verified 04:00 Date of Service: May 04, 2025 Billing Provider: MICA MOORE MD Common Visit Codes: [id number] INP/OBS CARE(HIGH) MICA MOORE MD May 04, 2025 12:34
[2025-05-04] MEDS: TIRZEPATIDE 5 MG/0.5 ML SC SCH (15:25)
[2025-05-04] MEDS ORDERED: PENICILLIN V POTASSIUM PO SCH (22:00)
[2025-05-05] VITALS (9 sets, daily range): BP systolic 101–135; BP diastolic 56–93; PULSE 80–109; RESP 17–22; TEMP 97–98.1; O2SAT 90–100
[2025-05-05 06:20] LABS: Hematocrit 40.2 % (36.0-46.0); Hemoglobin 13.5 g/dL (12.2-16.2); Mean Corpuscular Hemoglobin 29.5 pg (28.0-32.0); Mean Corpuscular Volume 87.8 fL (80.0-100.0)
[2025-05-05 06:28] LABS: Anion Gap 6 (5-15); Carbon Dioxide 31 mmol/L (20-31); Chloride 106 mmol/L (98-107); Potassium 4.5 mmol/L (3.5-5.1); Sodium 143 mmol/L (136-145)
[2025-05-05 06:29] LABS: Calcium 9.5 mg/dL (8.7-10.4)
[2025-05-05 06:34] LABS: BUN/Creatinine Ratio 15.6 (10.0-20.0); Blood Urea Nitrogen 12 mg/dL (9-23); Glucose 92 mg/dL (74-106)
[2025-05-05 06:50] LABS: Total Cells Counted 100.0 (100)
[2025-05-05] MEDS: methylPREDNISolone SOD SUCC 40 MG/ML VL IV ONE (07:00)
[2025-05-05] MEDS: FAMOTIDINE (10MG/ML) 2ML VL IV ONE (07:20)
[2025-05-05] MEDS ORDERED: CETIRIZINE HCL 10 MG PO SCH (10:00)
[2025-05-05] MEDS ORDERED: LORATADINE 10 MG TAB PO ONE (12:15)
[2025-05-05] MEDS: KETOROLAC TROMETH 30 MG/ML 1ML VIAL IV PRN (22:59)
--- NOTE | 2025-05-05 23:32 | DVHPN2 ---
Subjective The patient is seen and examined at bedside. The patient has allergic reaction to zosyn. She has rash all over her body. Zosyn has been stop. Reviewed: Care Plan, H&P, Labs, Medications, Previous Orders, Radiology Changes from previous H/P or p: No Changes Eyes: No Pain, No Vision change, No Conjunctivae inflammation, No Eyelid inflammation, No Other, No Redness ENT: No Ear pain, No Ear discharge, No Nose pain, No Nose discharge, No Nose congestion, No Mouth pain, No Mouth swelling, No Throat pain, No Throat swelling, No Other Cardiovascular: No Chest Pain, No Palpitations, No Orthopnea, No Paroxysmal Noc. Dyspnea, No Edema, No Lt Headedness, No Other Respiratory: No Cough, No Dry, No Shortness of breath, No SOB with excertion, No Wheezing, No Hemoptysis, No Pleuritic Pain, No Sputum, No Other Gastrointestinal: No Nausea, No Vomiting, No Abdominal Pain, No Diarrhea, No Constipation, No Melena, No Hematochezia, No Other Genitourinary: No Dysuria, No Frequency, No Incontinence, No Hematuria, No Retention, No Other Musculoskeletal: No other, No neck pain, No shoulder pain, No arm pain, No back pain, No hand pain; leg pain (right Knee); No foot pain Skin: No Rash, No Lesions, No Jaundice, No Bruising; Other (Redness and swelling around the right knee) Objective Vitals Vital Signs Date Time Temp Pulse Resp B/P (MAP) Pulse Ox O2 Delivery O2 Flow Rate FiO2 05/05/25 21:00 97.9 96 18 133/89 (104) 98 97.9 05/05/25 08:00 Room Air* 0 21 Intake/Output Intake and Output 05/05/25 06:59 Intake Total 2430 ml Balance 2430 ml Intake Oral 1930 ml IV Total 500 ml # Voids 7 # Bowel Movements 1 General Appearance: Alert, Oriented X3, Cooperative, No acute distress HEENT: Atraumatic, PERRLA, EOMI, Mucous membr. moist/pink Neck: Supple Lungs: Clear to auscultation, Normal air movement Cardiovascular: Regular rate, Normal S1, Normal S2, No murmurs, Gallops, Rubs Abdomen: Normal bowel sounds, Soft, No tenderness Neuro: Cranial nerves 3-12 NL Skin: Wounds, Other (Cellulitis on the right knee with erythema and some sipping fluid, crack wound) Psych/Mental Status: Mental status NL Medications Current Medications Medications Dose Ordered Sig/Reg Route Start Time Stop Time Status Last Admin Dose Admin Acetaminophen 325 mg Q4HP PRN PO 04/30/25 14:45 Acetaminophen/ Hydrocodone Bitart 1 tab Q4HP PRN PO 04/30/25 14:45 05/05/25 15:27 1 TAB Ondansetron HCl 4 mg Q4HP PRN IV 04/30/25 14:45 Enoxaparin Sodium 40 mg DAILY SC 05/01/25 10:00 05/04/25 09:14 40 MG Loratadine 10 mg DAILY PO 05/02/25 10:00 05/05/25 08:49 10 MG Vancomycin HCl 0 ml @ 0 mls/hr UD IV 05/03/25 07:00 Vancomycin HCl 300 ml @ 200 mls/hr Q12H IV 05/03/25 22:00 05/05/25 22:55 200 MLS/HR Diphenhydramine HCl 50 mg Q8HPRN PRN IV 05/03/25 17:00 05/05/25 22:54 50 MG Patient Own Medication 1 QWEEKLY SC 05/04/25 14:00 05/04/25 15:25 1 Patient Own Medication 1 tab DAILY PO 05/05/25 10:00 Hold Patient Own Medication 40 mg 2XW SC 05/07/25 12:00 Patient Own Medication 1 tab BID PO 05/04/25 22:00 Hold Ketorolac Tromethamine 15 mg Q8HPRN PRN IV 05/05/25 15:15 05/10/25 15:14 05/05/25 22:59 15 MG Laboratory Results Laboratory Tests 05/05/25 05:23 Chemistry Test 05/05/25 05:23 Calcium Level 9.5 mg/dL (8.7-10.4) Urinalysis Test 04/30/25 11:14 Urine Color Light-yellow (Yellow) Urine Clarity Clear (Clear) Urine pH 6.0 (5.0-9.0) Urine Specific [place] 1.019 (1.001-1.035) Urine Protein Negative (Negative) Urine Ketones Negative (Negative) Urine Blood Negative /uL (Negative) Urine Nitrite Negative (Negative) Urine Bilirubin Negative (Negative) Urine Urobilinogen Normal mg/dL (Negative) Urine Leukocyte Esterase Negative /uL (Negative) Urine RBC <1 /hpf (0 - 4) Urine Microscopic WBC 1 /HPF (0-5) Urine Squamous Epithelial Cells Few /hpf (<5) Urine Bacteria Few /hpf (None Seen) H Urine Glucose Normal mg/dL (Normal) Urine Test Negative (Negative) Microbiology Microbiology Date/Time Source Procedure Growth Status 05/02/25 23:35 Knee Right Gram Stain - Final Resulted 05/02/25 23:35 Knee Right Wound Culture - Preliminary Resulted 04/30/25 11:30 Blood Blood Culture - Final NO GROWTH AFTER 5 DAYS OF INCUBATION. Complete Labs and/or images reviewed: Labs reviewed by me Assessment/Plan Assessment/Plan Right knee cellulitis/rule out effusion Status post mechanical for in the backyard with right knee scratch. Allergic reaction to zosyn. Continuing current management. Continuing with IV antibiotic vancomycin pharmacy to dose. Stop zosyn. Continuing with pain medication IV and oral [place] Continuing wound care. We will continuing to monitor the radha the cellulitis and see if this improves with IV antibiotic. We will follow up with culture. So far is negative. Benadryl 50 mg IV Q 8 hours p.r.n. for itchiness Patient receive solumedrol and antihistamine and pepcid for her drug allergy Discharge planning. Resume home meds. This medical document was created using an electronic medical record system with [employer] direct computerized dictation system. Although this document has been carefully reviewed, there may still be some phonetic and typographical errors. These areas are purely typographical due to imperfections of the software programs, and do not reflect any compromise in the patient's medical care. Plan discussed with: Patient, Spouse My Orders Orders - MICA MOORE MD Procedure Category Date Status Time Creatinine LAB 05/06/25 Verified 04:00 Vancomycin,Trough LAB 05/06/25 Verified 21:00 Vancomycin Per NATHANAEL 05/06/25 In Process Pharmacy Protoc 22:00 Ketorolac Injection PHA 05/05/25 In Process (Toradol Injection) 15:15 Date of Service: May 05, 2025 Billing Provider: MICA MOORE MD Common Visit Codes: [id number] INP/OBS CARE(HIGH) MICA MOORE MD May 05, 2025 23:32
[2025-05-06] MEDS: hydrOXYzine HCL 10 MG TAB PO ONE (00:55)
[2025-05-06 01:00] VITALS: BP 100/70; PULSE 88; RESP 17; TEMP 97.9; O2SAT 99
[2025-05-06] MEDS: MELATONIN 5 MG TAB PO ONE (03:29)
--- NOTE | 2025-05-06 12:11 | DVHDS2 ---
Discharge Summary Date of Admission Apr 30, 2025 at 14:34 Date of Discharge: May 06, 2025 Admitting Diagnosis Right knee cellulitis/rule out effusion Status post mechanical fall in the backyard with right knee scratch. Labs/Diagnostic Data: Laboratory Results Test 05/05/25 05:23 05/04/25 21:01 05/04/25 05:33 05/01/25 05:12 White Blood Count 7.5 10^3/uL (4.4-10.8) Red Blood Count 4.58 10^6/uL (4.0-5.20) Hemoglobin 13.5 g/dL (12.2-16.2) Hematocrit 40.2 % (36.0-46.0) Mean Corpuscular Volume 87.8 fL (80.0-100.0) Mean Corpuscular Hemoglobin 29.5 pg (28.0-32.0) Mean Corpuscular Hemoglobin Concent 33.6 g/dL (32.0-36.0) Red Cell Distribution Width 16.0 % (11.8-14.3) Platelet Count 337 10^3/uL (140-450) Mean Platelet Volume 8.2 fL (6.9-10.8) Neutrophils (%) (Auto) % (37.0-80.0) Lymphocytes (%) (Auto) % (10.0-50.0) Monocytes (%) (Auto) % (0.0-12.0) Basophils (%) (Auto) % (0.0-2.0) Neutrophils # (Auto) 10 ^3/uL (1.6-8.6) Lymphocytes # (Auto) 10 ^3/uL (0.4-5.4) Monocytes # (Auto) 10 ^3/uL (0-1.3) Differential Total Cells Counted 100.0 (100) Neutrophils % (Manual) 55 (37.0-80.0) Band Neutrophils % (Manual) 0 Lymphocytes % (Manual) 23 (10.0-50.0) Monocytes % (Manual) 5 (0-12) Eosinophils % (Manual) 17 (0-7) Basophils % (Manual) 0 (0.0-2.0) Metamyelocytes % (manual) 0 Myelocytes % (Manual) 0 Promyelocytes % (Manual) 0 Blast Cells % (Manual) 0 Reactive Lymphocytes 0 Platelet Estimate Adequate Sodium Level 143 mmol/L (136-145) Potassium Level 4.5 mmol/L (3.5-5.1) Chloride Level 106 mmol/L (98-107) Carbon Dioxide Level 31 mmol/L (20-31) Anion Gap 6 (5-15) Blood Urea Nitrogen 12 mg/dL (9-23) Creatinine 0.77 mg/dL (0.550-1.02) Glomerular Filtration Rate Calc 95 mL/min (>90) BUN/Creatinine Ratio 15.6 (10.0-20.0) Serum Glucose 92 mg/dL (74-106) Calcium Level 9.5 mg/dL (8.7-10.4) Vancomycin Level Trough 10.4 ug/mL (5-10) Eosinophils (%) (Auto) 15.6 % (0.0-7.0) Eosinophils # (Auto) 1.1 10 ^3/uL (0-0.8) Basophils # (Auto) 0 10 ^3/uL (0-0.2) Nucleated Red Blood Cells 0.0 % Total Bilirubin 0.2 mg/dL (0.2-1.0) Aspartate Amino Transferase (AST) 17 U/L (13-40) Alanine Aminotransferase (ALT) 19 U/L (7-40) Alkaline Phosphatase 60 U/L (46-116) Total Protein 6.1 g/dL (5.7-8.2) Albumin 3.8 g/dL (3.2-4.8) Test 04/30/25 11:20 04/30/25 11:14 Erythrocyte Sedimentation Rate 5 mm/hr (0-20) Lactic Acid Level 1.2 mmol/L (0.4-2.0) C-Reactive Protein High Sensitivity 0.10 mg/dL (<1.0) Urine Color Light-yellow (Yellow) Urine Clarity Clear (Clear) Urine pH 6.0 (5.0-9.0) Urine Specific [place] 1.019 (1.001-1.035) Urine Protein Negative (Negative) Urine Ketones Negative (Negative) Urine Blood Negative /uL (Negative) Urine Nitrite Negative (Negative) Urine Bilirubin Negative (Negative) Urine Urobilinogen Normal mg/dL (Negative) Urine Leukocyte Esterase Negative /uL (Negative) Urine RBC <1 /hpf (0 - 4) Urine Microscopic WBC 1 /HPF (0-5) Urine Squamous Epithelial Cells Few /hpf (<5) Urine Bacteria Few /hpf (None Seen) Urine Glucose Normal mg/dL (Normal) Urine Test Negative (Negative) Other Laboratory Tests 05/05/25 05:23 Brief Hx & Hospital Course: This is a 49 years old female came to emergency department with chief complaint of right lower leg pain, redness, swelling. The patient apparently for in her backyard two weeks prior to this admission. She said she had a big scratch on her knee and she cleaned it up and manage it at home. However the knee pain is worsening and the redness started spreading so she decided to come to the hospital for further evaluation. She also had severe pain when she stand up and yellow drainage from the abrasion site. Her WBC is 9.6. Her CT of the right knee showed: Mild skin thickening and subcutaneous edema at the anterior aspect of the right knee and upper calf, which may suggest cellulitis or bland edema. No abscess or significant joint effusion at the right knee. The x-ray showed no fracture. The patient was admitted. The patient was put on IV clindamycin 3 times per day however did not improve the cellulitis so I change her to vancomycin pharmacy to dose and Zosyn 3.375 g IV Q 8 hours. Her cellulitis improved tremendously however she allergic to Zosyn is cause urticaria and rash all over her body. The patient was given steroid and itching medication Benadryl. The patient about to switch to oral antibiotic to go home the next day however she grew inpatient and left against medical advice. The patient stated that she will go to [place] instead. The patient verbally understands without full treatment she might have septic knee other complication of knee cellulitis but she still choose to leave against medical advice. Physical exam prior to leaving against medical advice show HEENT: Normocephalic atraumatic pupils equal react to light and accommodation. Extraocular muscles intact, conjunctiva pink, oropharynx moist, no thrush, no exudate. Lymphatic: No lymphadenopathy Cardiovascular exam: S1, S2 was heard. No murmurs, rubs, gallops Lung: Clear on auscultation bilaterally, no wheeze, rale, rhonchi. GI: Abdominal soft, nondistended, nontenderness, positive bowel sounds. Extremity: No crepitus, cyanosis, edema. Pedal pulses present bilateral. Full range of motion. Skin: Normal turgor, there is a large cellulitis and rash on right knee Psych: Alert, oriented x3. Neurology: No focal deficits, cranial nerve II to XII grossly intact. Condition at Discharge: Guarded Final Diagnosis/Problems List Right knee cellulitis/rule out effusion Status post mechanical fall in the backyard with right knee scratch. Allergic reaction to zosyn. Discharge Disposition: AMA Discharge Instruct/Medications Scheduled Cetirizine Hcl (Kls Aller-[place]), 1 TAB PO DAILY, (Reported) Clindamycin Hcl (Cleocin), 1 CAP PO QID, (Reported) Glatiramer Acetate (Copaxone), 40 MG SC 2XW, (Reported) Penicillin V Potassium (Veetids), 1 TAB PO BID Miscellaneous Medications Tirzepatide (Zepbound), 5 MG SC, (Reported) Discharge Statement: "Patient was advised to return to the ER or call 911 if any headaches, dizziness, shortness of breath, chest pain, abdominal pain, bleeding, fevers, or worsening of medical condition. Patient was counseled about treatment plan, medications, possible side effects, patientverbalized understanding. All questions were answered to the best of my ability. This discharge took greater then 30 minutes in planning, reviewing documentation, counseling the patient, and discussing with other team members." ASSESSMENT ASSESSMENT Assessment Date of Service: May 06, 2025 Billing Provider: MICA MOORE MD Common Visit Codes: [id number] DISCH DAY >30min MICA MOORE MD May 06, 2025 12:11
[2025-05-07] MEDS ORDERED: Glatiramer Acetate (Copaxone) 40 MG SC SCH (12:00)
== END 2025-05-06 03:52 | disposition left against medical advice (07) | DRG 383 ==
LOC: ER 10:45 → OVERFLOW 14:34 → EAST 23:10
PROVIDERS: ADMIT Internal Medicine; ATTEND Internal Medicine
DX: L03.115 Cellulitis of right lower limb (principal); F41.9 Anxiety disorder, unspecified; Y92.89 Other specified places as the place of occurrence of the external cause; L03.116 Cellulitis of left lower limb; L50.9 Urticaria, unspecified; T36.0X5A Adverse effect of penicillins, initial encounter; Z53.29 Procedure and treatment not carried out because of patient's decision for other reasons; Z90.49 Acquired absence of other specified parts of digestive tract; Z88.8 Allergy status to other drugs, medicaments and biological substances
CPT/HCPCS: 36415; 73700; 76881; 80048; 80053; 80202; 81001; 81025; 82565; 83605; 85007; 85025; 85027; 85652; 86141; 87040; 87205; 96365; 96375; G0378; J1885; J2543; J3490